=== PATIENT | male | born 2000 | race Caucasian/White ===

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

== ENCOUNTER 2023-05-12 16:03 | Emergency (ER) | payer OTHER, SELFPAY ==
[2023-05-12 16:15] VITALS: BP 120/67; PULSE 124; RESP 17; TEMP 36.6; O2SAT 99; BMI 18.7
--- NOTE | 2023-05-12 16:16 | ED_ITS ---
HPI - URI/Sore Throat General Chief Complaint: General Medical Stated Complaint: Throat pain Time Seen by Provider: 05/12/23 17:47 Source: patient Mode of arrival: ambulatory History of Present Illness HPI Narrative: 23-year-old patient with history of asthma presents with 3 days of sore throat, no cough, no fevers or chills and no nausea or vomiting. Related Data Allergies Allergy/AdvReac Type Severity Reaction Status Date / Time No Known Allergies Allergy Unverified 03/29/20 17:02 [No Known Allergies*] Review of Systems Review of Systems: Pertinent positives and negatives as stated in HPI [facility] Past Medical History Source: nursing notes reviewed Physical Exam Vital Signs: Vital Signs: Last Vital Signs Temp 97.9 F 05/12/23 16:15 Pulse 88 05/12/23 18:13 Resp 18 05/12/23 18:13 BP 118/62 05/12/23 18:13 Pulse Ox 100 05/12/23 18:13 O2 Del Method Room Air 05/12/23 18:13 BMI result Body Mass Index 18.7 VITAL SIGNS: Reviewed. GENERAL: Well developed, well nourished, in no acute distress. HEAD: Normocephalic/atraumatic EYES: PERRLA, EOMI EARS: Ext canals without abnormality, TMs non-bulging and non-erythematous NOSE: Nares patent bilateral OROPHARYNX: no oral lesions noted, posterior pharynx clear and non-erythematous without noted tonsillar enlargement/erythema/exudates NECK: Supple, no adenopathy LUNGS: Normal breath sounds. No adventitious sounds or accessory muscle use. SpO2<100> CARDIOVASCULAR: Regular rate and rhythm without noted murmurs ABDOMEN: Soft, non-tender, non-distended with bowel sounds. MUSCULOSKELETAL: No tenderness, deformities, or effusions noted on gross inspection. EXTREMITIES: No cyanosis, clubbing or edema. SKIN: Inspection of the skin reveals no rashes NEUROLOGIC: Alert and oriented x 4. Strength and sensation to light touch were grossly intact x 4. Course Course Course Narrative: RME: 23yo M w/no sig PMHx c/o sore throat x3 days. Reports can't breath & throat feels like its closing x mos. Talking in complete sentences, +mild b/l tonsilar swelling. no exudates. uvula midline Rapid strep, COVID/FLU ordered Full HPI, ROS and PE to be performed by primary ED provider. Medical Decision Making Medical Decision Making [facility] Narrative: 23-year-old male with history and clinical presentation possible for viral pharyngitis, strep pharyngitis, influenza, no evidence to suggest pneumonia or intra-abdominal infections. I reviewed all investigations and re-evaluated the patient, he is afebrile and viral testing is negative for COVID-19/influenza and strep testing is negative. Patient provided with Cepacol and discharged with instructions to use qvsh-ouk-vknobzg analgesics as well as arnj-pks-dutmljd throat lozenges. Differential Diagnosis Differential Diagnoses: The differential diagnosis associated with the presentation includes Please see the discussion above Admission/Observation Consideration of admission/observation: Escalation of care including admission/observation considered Please see the discussion above Lab Data [facility] Lab Attestation statement: I reviewed the patient's lab results. Please see the discussion above Labs: Lab Results 05/12/23 Range/Units 17:38 COVID-19 (DAMIAN) Negative (Negative) COVID-19 Clin Com See Note Influenza Type A (HAKAN) Negative (Negative) Influenza Type B (HAKAN) Negative (Negative) Influenza A & B Note See Note S. pyogenes GrpA HAKAN Negative (Negative) Discharge Plan Discharge Clinical Impression: Pharyngitis Patient Disposition: Home, Self-Care Instructions: Pharyngitis (ED) Additional Instructions: 1. Recommend [id number]-qkofplo Tylenol/ibuprofen as needed for pain control. Also consider vuvc-efi-dlmgqin throat lozenges such as Cepacol and Sucrets for throat relief. 2. Follow-up with your primary care doctor in the next 1-2 days for re- evaluation. Return to the ER for any worsening symptoms.
[2023-05-12 18:00] LABS: COVID-19 Test Negative (Negative); IDNOW Serial# 08D9AD1C; IDNOW Serial# 9DB6401D; IDNOW Serial# BCCEAD1C; Influenza A Negative (Negative); Influenza B2 Negative (Negative); Strep A Nucleic Acid Negative (Negative)
[2023-05-12 18:13] VITALS: BP 118/62; PULSE 88; RESP 18; O2SAT 100
--- OUTSIDE RECORDS SUMMARY | 2023-05-12 18:26 | XMS_ITS | Continuity of Care Document ---
Author Name Unknown Organization [facility] Address [address] [place] [address]- Care Team Providers Care Electric Power Line Examiner Name Role Phone Juan Anand MD Primary Care Physician [phone] [place] [facility] [place] [facility] [place] 08/20/22 [facility] [address] [place] [address]- [place] Allergies, Adverse Reactions, Alerts No Known Allergies Medications albuterol 0.083% inhalation solution Inhalation, Every 6 hours, Scheduled / PRN, 0, 0, 08/12/08 23:12:26, as needed for wheezing, Print JENNA Number, 54 Start Date: 08/12/08 Status: Ordered albuterol 90 mcg/inh inhalation aerosol 0, 0, 08/12/08 23:12:43, Print JENNA Number, Constant Indicator Start Date: 08/12/08 Status: Ordered Augmentin 400 mg-57 mg/5 ml oral powder for reconstitution 5, mL, By Mouth, Every 12 hours, 210, mL, 0, 0, 08/15/08 16:11:03, Print JENNA Number, ADS OPPTHS, 103, Constant Indicator Start Date: 08/15/08 Stop Date: 09/05/08 Status: Ordered estradiol 1 mg oral tablet 1, tablet, By Mouth, Daily, # 30 tablet, Refills 6, Maintenance, 08/04/22 9:33:00 EST, Route to Pharmacy Electronically, [id number], 180, cm, 09/25/21 11:40:00 EDT, Height, 64.9, kg, 04/30/22 15:21:00 EDT, Dry Weight Start Date: 08/04/22 Status: Ordered Flovent Diskus 50 mcg inhalation powder 1, puffs, Inhalation, 2 times a day, 0, 0, 08/12/08 23:12:13, Print JENNA Number, [id number], Constant Indicator Start Date: 08/12/08 Status: Ordered Triptodur 22.5 mg intramuscular injection, extended release = 22.5 mg, Intramuscular, Every 6 months, # 1 each, 1 Refills, Maintenance, 04/14/22 14:06:00 EDT, Powder, [facility], Partial fill upon patient request if the prescription is for a schedule II opioid drug., 180, cm, 09/25/21 11:40:00... Start Date: 04/14/22 Status: Ordered Patient Care team information Care Team Personnel Name: Chegn LYNN, Juan Post Position: [facility] General Pediatrics MD Member Role: PCP Address: Address: [address] [place] [address] [place] [address]- Care Team Related Persons Name: SALMA CASTELLANOS Address: home [address] [place] [address] Name: LAWRENCE GONSALES Address: home [address] [place] [address]
--- OUTSIDE RECORDS SUMMARY | 2023-05-12 18:26 | XMS_ITS | Continuity of Care Document ---
Author Name Unknown Organization [facility] Address [address] [place] [address]- Care Team Providers Care Sports Equipment Supervisor Name Role Phone Juan Anand MD Primary Care Physician [place] [facility] [place] 02/04[place]23 - 03/06/23 [facility] [address] [place] [address]- [place] Allergies, Adverse Reactions, Alerts No Known Allergies Medications 1 cc syringe 1 cc syringe, See Instructions, # 2 each, Refills 4, Tot. Refills 4, Maintenance, to be used to administer estradiol (<50mg), 02/26/23 16:16:00 EDT, Compound, 180, cm, 09/25/21 11:40:00 EDT, Height, 63.6, kg, 10/29/22 15:48:00 EDT, Dry Weight Start Date: 02/26/23 Status: Ordered 18 gauge 1 inch syringe needle 18 gauge 1 inch syringe needle, See Instructions, # 2 each, Refills 4, Tot. Refills 4, Maintenance,to be used to draw up estradiol, 02/26/23 16:16:00 EDT, Compound, 180, cm, 09/25/21 11:40:00 EDT, Height, 63.6, kg, 10/29/22 15:48:00 EDT, Dry Weight Start Date: 02/26/23 Status: Ordered 22-23 gauge 1 inch syringe needle 22-23 gauge 1 inch syringe needle, See Instructions, # 2 each, Refills 4, Tot. Refills 4, Maintenance, To be used to administer estradiol injection, 02/26/23 16:16:00 EDT, Compound, 180, cm, 09/25/2210:40:00 EDT, Height, 63.6, kg, 10/29/22 15:48:00 E... Start Date: 02/26/23 Status: Ordered albuterol 0.083% inhalation solution Inhalation, Every 6 [...] 08/15/08 Stop Date: 09/05/08 Status: Ordered estradiol valerate 40 mg/mL intramuscular solution 0.125 mL = 5 mg, Intramuscular, Every 14 days, # 5 mL, 4 Refills, Maintenance, 02/26/23 16:16:00 EDT, [facility]/pharmacy #[id number], Partial fill upon patient request if the prescription is for a schedule II opioid drug., 180, cm, 09/25/21 11:40:00 EDT, Height,... Start Date: 02/26/23 Stop Date: 07/26/23 Status: Ordered Flovent Diskus 50 mcg inhalation powder 1, puffs, Inhalation, 2 times a day, 0, 0, 08/12/08 23:12:13, Print JENNA Number, [id number], Constant Indicator Start Date: 08/12/08 Status: Ordered Triptodur 22.5 mg intramuscular injection, extended release = 22.5 mg, Intramuscular, Every 6 months, # 1 each, 1 Refills, Maintenance, 04/14/22 14:06:00 EDT, Powder, [facility], Partial fill upon patient request if the prescription is for a schedule II opioid drug., 180, cm, 09/25/21 11:40:00... Start Date: 04/14/22 Status: Ordered Patient Care team information Care Team Personnel Name: Juan Anand MD Position: [facility] General Pediatrics MD Member Role: PCP Address: Address: [address] [place] [address] [facility] [place], [place] [address] Care Team Related Persons Name: SALMA CASTELLANOS Address: home [address] [place] [address] Name: LAWRENCE GONSALES Address: home [address] [place] [address]
--- OUTSIDE RECORDS SUMMARY | 2023-05-12 18:26 | XMS_ITS | Continuity of Care Document ---
Author Name Unknown Organization [facility] Address [address] [place] [address]- Care Team Providers Care Air Pollution Engineer Name Role Phone Juan Anand MD Primary Care Physician Encounter [facility] [place] Date(s): 07/21/22 - 08/20/22 [facility] [address] [place] [address]- [place] Allergies, Adverse Reactions, Alerts No Known Allergies Medications albuterol 0.083% inhalation solution Inhalation, Every 6 hours, Scheduled / PRN, 0, 0, 08/12/08 23:12:26, as needed for wheezing, Print JENNA Number, 54 Start Date: 08/12/08 Status: Ordered albuterol 90 mcg/inh inhalation aerosol 0, 0, 08/12/08 23:12:43, Print EJNNA Number, Constant Indicator Start Date: 08/12/08 Status: [...] 08/04/22 9:33:00 EST, Route to Pharmacy Electronically, [id number], 180, cm, 09/25/21 11:40:00 EDT, Height, 64.9, kg, 04/30/22 15:21:00 EDT, Dry Weight Start Date: 08/04/22 Status: Ordered Flovent Diskus 50 mcg inhalation powder 1, puffs, Inhalation, 2 times a day, 0, 0, 08/12/08 23:12:13, Print JENNA Number, [id number], Constant Indicator Start Date: 08/12/08 Status: Ordered Triptodur 22.5 mg intramuscular injection, extended release = 22.5 mg, Intramuscular, Every 6 months, # 1 each, 1 Refills, Maintenance, 04/14/22 14:06:00 EDT, Powder, [facility], Partial fill upon patient request if the prescription is for a schedule II opioid drug., 180, cm, 09/25/21 11:40:00... Start Date: 04/14/22 Status: Ordered Patient Care team information Care Team Personnel Name: Cheng LYNN, Juan Post Position: [facility] General Pediatrics MD Member Role: PCP Address: Address: [address] [place] [address] [place] [address]- Care Team Related Persons Name: SALMA CASTELLANOS Address: [address] [place] [address] Name: LAWRENCE GONSALES Address: [address] [place] [address]
--- OUTSIDE RECORDS SUMMARY | 2023-05-12 18:26 | XMS_ITS | Continuity of Care Document ---
Author Name Unknown Organization [facility] Address [address] [place] [address]- Care Team Providers Care Trailers And Motor Homes Salesperson Name Role Phone Juan Anand MD Primary Care Physician [phone] Encounter [facility] [place] Date(s): 03/23/23 - 04/22/23 [facility] [address] [place] [address] [place] Allergies, Adverse Reactions, Alerts No Known Allergies Medications 1 cc syringe 1 cc syringe, See Instructions, # 2 each, Refills 4, Tot. Refills 4, Maintenance, to be used to administer estradiol (<50mg), 03/23/23 14:52:00 EDT, Compound, 180, cm, 09/25/21 11:40:00 EDT, Height, 63.6, kg, 10/29/22 15:48:00 EDT, Dry Weight Start Date: 03/23/23 Status: Ordered 18 gauge 1 inch syringe needle 18 gauge 1 inch syringe needle, See Instructions, # 2 each, Refills 4, Tot. Refills 4, Maintenance,to be used to draw up estradiol, 03/23/23 14:52:00 EDT, Compound, 180, cm, 09/25/21 11:40:00 EDT, Height, 63.6, kg, 10/29/22 15:48:00 EDT, Dry Weight Start Date: 03/23/23 Status: Ordered 22-23 gauge 1 inch syringe needle 22-23 gauge 1 inch syringe needle, See Instructions, # 2 each, Refills 4, Tot. Refills 4, Maintenance, To be used to administer estradiol injection, 03/23/23 14:52:00 EDT, Compound, 180, cm, 09/25/2210:40:00 EDT, Height, 63.6, kg, 10/29/22 15:48:00 E... Start Date: 03/23/23 Status: Ordered albuterol 0.083% inhalation solution Inhalation, [...] days, # 5 mL, 4 Refills, Maintenance, 03/23/23 14:52:00 EDT, [facility]/pharmacy #[id number], Partial fill upon patient request if the prescription is for a schedule II opioid drug., 180, cm, 09/25/21 11:40:00 EDT, Height,... Start Date: 03/23/23 Stop Date: 08/20/23 Status: Ordered Flovent Diskus 50 mcg inhalation powder 1, puffs, Inhalation, 2 times a day, 0, 0, 08/12/08 23:12:13, Print JENNA Number, [id number], Constant Indicator Start Date: 08/12/08 Status: Ordered Lupron Depot-Ped 30 mg/3 months intramuscular kit = 30 mg, Intramuscular, Every 3 months, # 1 each, 3 Refills, Maintenance, 04/03/23 13:01:00 EDT, Powder, [facility], Partial fill upon patient request if the prescription is for a schedule II opioid drug., 180, cm, 09/25/21 11:40:00 E... Start Date: 04/03/23 Stop Date: 03/28/24 Status: Ordered Patient Care team information Care Team Personnel Name: Juan Anand MD Position: [facility] General Pediatrics MD Member Role: PCP Address: Address: [address] [place] [address] [place] [address]- [place] Name: Ever CACERES, Camilla Position: S RN Member Role: Primary Care Nurse Care Team Related Persons Name: SALMA CASTELLANOS Address: home [address] [place] [address] Name: LAWRENCE GONSALES Address: home [address] [place] [address]
--- OUTSIDE RECORDS SUMMARY | 2023-05-12 18:26 | XMS_ITS | Continuity of Care Document ---
Author Name Unknown Organization [facility] Address [address] [place] [address]- Care Team Providers Care Port Engineer Name Role Phone Cheng LYNN, Juan Post Primary Care Physician [place] [facility] [place]s): 01/08/21 - 03/14/21 [facility] [address] [place] [address]- Attending Physician: Victorino LYNN, Joey Omalley Admitting Physician: Victorino LYNN, Joey Omalley Referring Physician: Juan nAand MD Allergies, Adverse Reactions, Alerts Substance Reaction Severity Status NKA Active Medications albuterol 0.083% inhalation solution Inhalation, Every [...] Date: 08/15/08 Stop Date: 09/05/08 Status: Ordered Flovent Diskus 50 mcg inhalation powder 1, puffs, Inhalation, 2 times a day, 0, 0, 08/12/08 23:12:13, Print JENNA Number, [id number], Constant Indicator Start Date: 08/12/08 Status: Ordered
--- OUTSIDE RECORDS SUMMARY | 2023-05-12 18:26 | XMS_ITS | Continuity of Care Document ---
Author Name Unknown Organization [facility] Address [address] [place] [address]- Care Team Providers Care Experienced Truck Driver Name Role Phone Juan Anand MD Primary Care Physician [phone] [place] [facility] [place]22 [facility] [address] [place] [address]- [place] Allergies, Adverse Reactions, Alerts No Known [...] Date: 08/15/08 Stop Date: 09/05/08 Status: Ordered Estrace 1 mg oral tablet 1 mg, 1, tablet, By Mouth, Daily, # 30 tablet, Refills 6, Tot. Refills 6, Maintenance, 12/23/21 15:51:00 EDT, Route to Pharmacy Electronically, [facility]/pharmacy #[id number], Partial fill upon patient request if the prescription is for a schedule II opioid drug.... Start Date: 12/23/21 Status: Ordered Flovent Diskus 50 mcg inhalation powder 1, puffs, Inhalation, 2 times a day, 0, 0, 08/12/08 23:12:13, Print JENNA Number, [id number], Constant Indicator Start Date: 08/12/08 Status: Ordered Triptodur 22.5 mg intramuscular injection, extended release = 22.5 mg, Intramuscular, Every 6 months, # 1 each, 1 Refills, Maintenance, 04/18/21 9:14:00 EDT, Miguel, [facility], Partial fill upon patient request if the prescription is for a schedule II opioid drug., 178.5, cm, 04/17/21 11:06:0... Start Date: 04/18/21 Status: Ordered
--- OUTSIDE RECORDS SUMMARY | 2023-05-12 18:26 | XMS_ITS | Continuity of Care Document ---
Author Name Unknown Organization [facility] Address [address] [place] [address]- Care Team Providers Care Dielectric Press Operator Name Role Phone Juan Anand MD Primary Care Physician Encounter [facility] Date(s): 12/02/21 - 01/01/22 [facility] [address] [place] [phone]- [place] Allergies, Adverse Reactions, Alerts No Known [...] 12/23/21 15:51:00 EDT, Route to Pharmacy Electronically, [facility]/pharmacy #[id number], Partial fill upon patient request if the prescription is for a schedule II opioid drug.... Start Date: 12/23/21 Status: Ordered Flovent Diskus 50 mcg inhalation powder 1, puffs, Inhalation, 2 times a day, 0, 0, 08/12/08 23:12:13, Print JENNA Number, [id number], Constant Indicator Start Date: 08/12/08 Status: Ordered Triptodur 22.5 mg intramuscular injection, extended release = 22.5 mg, Intramuscular, Every 6 months, # 1 each, 1 Refills, Maintenance, 04/18/21 9:14:00 EDT, Powder, [facility], Partial fill upon patient request if the prescription is for a schedule II opioid drug., 178.5, cm, 04/17/21 11:06:0... Start Date: 04/18/21 Status: Ordered
--- OUTSIDE RECORDS SUMMARY | 2023-05-12 18:26 | XMS_ITS | Continuity of Care Document ---
Author Name Unknown Organization [facility] Address [address] [place] [address]- Care Team Providers Care Oss Architect Name Role Phone Juan Anand MD Primary Care Physician [phone] [place] [facility] [place] 12/23/21 - 01/22/22 [facility] [address] [place] [address] [place] Allergies, Adverse Reactions, Alerts No Known [...] 12/23/21 15:51:00 EDT, Route to Pharmacy Electronically, [facility]/pharmacy #[id number], Partial fill upon patient request if the prescription is for a schedule II opioid drug.... Start Date: 12/23/21 Status: Ordered Flovent Diskus 50 mcg inhalation powder 1, puffs, Inhalation, 2 times a day, 0, 0, 08/12/08 23:12:13, Print JENNA Number, [id number], Constant Indicator Start Date: 08/12/08 Status: Ordered Triptodur 22.5 mg intramuscular injection, extended release = 22.5 mg, Intramuscular, Every 6 months, # 1 each, 1 Refills, Maintenance, 04/18/21 9:14:00 EDT, Miguel, [facility], Partial fill upon patient request if the prescription is for a schedule II opioid drug., 178.5, cm, 04/17/21 11:06:0... Start Date: 04/18/21 Status: Ordered
--- OUTSIDE RECORDS SUMMARY | 2023-05-12 18:26 | XMS_ITS | Continuity of Care Document ---
Author Name Unknown Organization [facility] Address [address] [place] [address]- Care Team Providers Care Geophysical Engineer Name Role Phone Juan Anand MD Primary Care Physician [place] [facility] [place]23 [place] 03/06/23 [facility] [address] [place] [address]- [place] Allergies, Adverse Reactions, Alerts No Known [...] mL, 4 Refills, Maintenance, 02/26/23 16:16:00 EDT, [facility]/pharmacy #[id number], Partial fill upon patient request if the prescription is for a schedule II opioid drug., 180, cm, 09/25/21 11:40:00 EDT, Height,... Start Date: 02/26/23 Stop Date: 07/26/23 Status: Ordered Flovent Diskus 50 mcg inhalation powder 1, puffs, Inhalation, 2 times a day, 0, 0, 08/12/08 23:12:13, Print JENNA Number, [id number], Constant Indicator Start Date: 08/12/08 Status: Ordered Triptodur 22.5 mg intramuscular injection, extended release = 22.5 mg, Intramuscular, Every 6 months, # 1 each, 1 Refills, Maintenance, 04/14/22 14:06:00 EDT, Powder, [facility], Partial fill upon patient request if the prescription is for a schedule II opioid drug., 180, cm, 09/25/21 11:40:00... Start Date: 04/14/22 Status: Ordered Patient Care team information Care Team Personnel Name: Juan Anand MD Position: [facility] General Pediatrics MD Member Role: PCP Address: Address: [address] [place] [address] [facility] [place], [place] [address] Care Team Related Persons Name: SALMA CASTELLANOS Address: home [address] [place] [address] Name: LAWRENCE GONSALES Address: home [address] [place] [address]
--- OUTSIDE RECORDS SUMMARY | 2023-05-12 18:26 | XMS_ITS | Continuity of Care Document ---
Author Name Unknown Organization [facility] Address [address] [place] [address]- Care Team Providers Care Tools Developer Name Role Phone Cheng LYNN, Juan Post Primary Care Physician Encounter [facility] [place] Date(s): 10/01/20 - 10/31/20 [facility] [address] [place] [address]- Attending Physician: Admtr, Willie8 Admitting Physician: Admtr, Ar8 Referring Physician: Admtr, Ar8 Allergies, Adverse Reactions, Alerts Substance Reaction Severity [...] 0, 0, 08/12/08 23:12:13, Print JENNA Number, [id number], Constant Indicator Start Date: 08/12/08 Status: Ordered
--- OUTSIDE RECORDS SUMMARY | 2023-05-12 18:26 | XMS_ITS | Continuity of Care Document ---
Author Name Unknown Organization [facility] Address [address] [place] [address]- Care Team Providers Care Family Dinner Service Specialist Name Role Phone Juan Anand MD Primary Care Physician [phone] Encounter [facility] [place] Date(s): 02/25/23 - 03/27/23 [facility] [address] [place] [address]- [place] Allergies, Adverse Reactions, Alerts No Known [...] 03/23/23 14:52:00 EDT, [facility]/pharmacy #[id number], Partial fill upon patient request if the prescription is for a schedule II opioid drug., 180, cm, 09/25/21 11:40:00 EDT, Height,... Start Date: 03/23/23 Stop Date: 08/20/23 Status: Ordered Flovent Diskus 50 mcg inhalation powder 1, puffs, Inhalation, 2 times a day, 0, 0, 08/12/08 23:12:13, Print JENNA Number, [id number], Constant Indicator Start Date: 08/12/08 Status: Ordered Triptodur 22.5 mg intramuscular injection, extended release = 22.5 mg, Intramuscular, Every 6 months, # 1 each, 1 Refills, Maintenance, 04/14/22 14:06:00 EDT, Powder, [facility], Partial fill upon patient request if the prescription is for a schedule II opioid drug., 180, cm, 09/25/21 11:40:00... Start Date: 04/14/22 Status: Ordered Patient Care team information Care Team Personnel Name: Juan Anand MD Position: [facility] General Pediatrics MD Member Role: PCP Address: Address: [address] [place] [address] [place] [address]- Care Team Related Persons Name: EMANUEL SALMA Address: home [address] [place] [address] Name: LAWRENCE GONSALES Address: home [address] [place] [address]
--- OUTSIDE RECORDS SUMMARY | 2023-05-12 18:26 | XMS_ITS | Continuity of Care Document ---
Author Name Unknown Organization [facility] ndocr[facility] Address [address] [place] [address]- Care Team Providers Care Ostomy Nurse Name Role Phone Juan Anand MD Primary Care Physician [place] [facility] [place](s[place] 09/24/22 - 10/24/22 [facility] [address] [place] [address]- [place] Allergies, Adverse Reactions, Alerts No Known Allergies Medications 1 cc syringe 1 cc syringe, See Instructions, # 2 each, Refills 4, Tot. Refills 4, Maintenance, to be used to administer estradiol (<50mg), 10/09/22 16:10:00 EDT, Compound, 180, cm, 09/25/21 11:40:00 EDT, Height, 62.2, kg, 09/22/22 14:07:00 EDT, Dry Weight Start Date: 10/09/22 Status: Ordered 18 gauge 1 inch syringe needle 18 gauge 1 inch syringe needle, See Instructions, # 2 each, Refills 4, Tot. Refills 4, Maintenance,to be used to draw up estradiol, 10/09/22 16:10:00 EDT, Compound, 180, cm, 09/25/21 11:40:00 EDT, Height, 62.2, kg, 09/22/22 14:07:00 EDT, Dry Weight Start Date: 10/09/22 Status: Ordered 22-23 gauge 1 inch syringe needle 22-23 gauge 1 inch syringe needle, See Instructions, # 2 each, Refills 4, Tot. Refills 4, Maintenance, To be used to administer estradiol injection, 10/09/22 16:10:00 EDT, Compound, 180, cm, 09/25/2210:40:00 EDT, Height, 62.2, kg, 09/22/22 14:07:00 E... Start Date: 10/09/22 Status: Ordered albuterol 0.083% inhalation solution Inhalation, [...] Ordered estradiol valerate 40 mg/mL intramuscular solution 0.25 mL = 10 mg, Intramuscular, Every 14 days, # 5 mL, 4 Refills, Maintenance, 10/09/22 16:44:00 EDT, [facility], Partial fill upon patient request if the prescription is for a schedule II opioid drug., 180, cm, 09/25/21 11:40:00 EDT,... Start Date: 10/09/22 Status: Ordered Flovent Diskus 50 mcg inhalation powder 1, puffs, Inhalation, 2 times a day, 0, 0, 08/12/08 23:12:13, Print JENNA Number, [id number], Constant Indicator Start Date: 08/12/08 Status: Ordered Triptodur 22.5 mg intramuscular injection, extended release = 22.5 mg, Intramuscular, Every 6 months, # 1 each, 1 Refills, Maintenance, 04/14/22 14:06:00 EDT, Powder, [facility], Partial fill upon patient request if the prescription is for a schedule II opioid drug., 180, cm, 09/25/21 11:40:00... Start Date: 04/14/22 Status: Ordered Patient Care team information Care Team Personnel Name: Juan nAand MD Position: [facility] General Pediatrics MD Member Role: PCP Address: Address: [address] [place] [address] Pediatric Associates [place], [place] [address] Care Team Related Persons Name: SALMA CASTELLANOS Address: [address] [place] [address] Name: LAWRENCE GONSALES Address: home [address] [place] [address]
--- OUTSIDE RECORDS SUMMARY | 2023-05-12 18:26 | XMS_ITS | Continuity of Care Document ---
Author Name Unknown Organization [facility] Address [address] [place] [address]- Care Team Providers Care Milker Machine Name Role Phone Juan Anand MD Primary Care Physician [phone] [place] [facility] [place] - 11/15/22 [facility] [address] [place] [address]- Attending Physician: Admtr, Carol Admitting Physician: Admtr, Ar8 Referring Physician: Admtr, Ar8 Allergies, Adverse Reactions, Alerts No Known Allergies Medications 1 cc syringe 1 cc syringe, See Instructions, # 2 each, Refills 4, Tot. Refills 4, Maintenance, to be used to administer estradiol (<50mg), 11/11/22 15:45:00 EDT, Compound, 180, cm, 09/25/21 11:40:00 EDT, Height, 63.6, kg, 10/29/22 15:48:00 EDT, Dry Weight Start Date: 11/11/22 Status: Ordered 18 gauge 1 inch syringe needle 18 gauge 1 inch syringe needle, See Instructions, # 2 each, Refills 4, Tot. Refills 4, Maintenance,to be used to draw up estradiol, 11/11/22 15:45:00 EDT, Compound, 180, cm, 09/25/21 11:40:00 EDT, Height, 63.6, kg, 10/29/22 15:48:00 EDT, Dry Weight Start Date: 11/11/22 Status: Ordered 22-23 gauge 1 inch syringe needle 22-23 gauge 1 inch syringe needle, See Instructions, # 2 each, Refills 4, Tot. Refills 4, Maintenance, To be used to administer estradiol injection, 11/11/22 15:45:00 EDT, Compound, 180, cm, 09/25/2210:40:00 EDT, Height, 63.6, kg, 10/29/22 15:48:00 E... Start Date: 11/11/22 Status: Ordered albuterol 0.083% inhalation solution Inhalation, [...] mL, 4 Refills, Maintenance, 10/09/22 16:44:00 EDT, [facility], Partial fill upon patient request if the prescription is for a schedule II opioid drug., 180, cm, 09/25/21 11:40:00 EDT,... Start Date: 10/09/22 Status: Ordered Flovent Diskus 50 mcg inhalation powder 1, puffs, Inhalation, 2 times a day, 0, 0, 08/12/08 23:12:13, Print JENNA Number, [id number], Constant Indicator Start Date: 08/12/08 Status: Ordered Triptodur 22.5 mg intramuscular injection, extended release = 22.5 mg, Intramuscular, Every 6 months, # 1 each, 1 Refills, Maintenance, 04/14/22 14:06:00 EDT, Powder, [facility], Partial fill upon patient request if the prescription is for a schedule II opioid drug., 180, cm, 09/25/21 11:40:00... Start Date: 04/14/22 Status: Ordered Patient Care team information Care Team Personnel Name: Cheng LYNN, Juan Post Position: [facility] General Pediatrics MD Member Role: PCP Address: Address: [address] [place] [address] [facility] [place] [address]- Care Team Related Persons Name: SALMA CASTELLANOS Address: [address] [place] [address] Name: LAWRENCE GONSALES Address: home [address] [place] [address]
--- OUTSIDE RECORDS SUMMARY | 2023-05-12 18:26 | XMS_ITS | Continuity of Care Document ---
Author Name Unknown Organization [facility] Address [address] [place] [address]- Care Team Providers Care Animal Husbandman Name Role Phone Juan Anand MD Primary Care Physician [place] [facility] [place] 05/26/22 - 06/25/22 [facility] [address] [place] [address]- [place] Allergies, Adverse Reactions, Alerts No Known [...] By Mouth, Daily, # 30 tablet, Refills 0, Tot. Refills 0, Maintenance, 06/09/22 15:50:00 EST, Route to Pharmacy Electronically, [facility]/pharmacy #[id number], Partial fill upon patient request if the prescription is for a schedule II opioid drug.... Start Date: 06/09/22 Status: Ordered Flovent Diskus 50 mcg inhalation powder 1, puffs, Inhalation, 2 times a day, 0, 0, 08/12/08 23:12:13, Print JENNA Number, [id number], Constant Indicator Start Date: 08/12/08 Status: Ordered Triptodur 22.5 mg intramuscular injection, extended release = 22.5 mg, Intramuscular, Every 6 months, # 1 each, 1 Refills, Maintenance, 04/14/22 14:06:00 EDT, Powder, [facility], Partial fill upon patient request if the prescription is for a schedule II opioid drug., 180, cm, 09/25/21 11:40:00... Start Date: 04/14/22 Status: Ordered Patient Care team information Care Team Personnel Name: Cheng LYNN, Juan Post Position: [facility] General Pediatrics MD Member Role: PCP Address: Address: [address] [place] [address] [place] [address]- Care Team Related Persons Name: SALMA CASTELLANOS Address: [address] [place] [address] Name: LAWRENCE GONSALES Address: home [address] [place] [address]
--- OUTSIDE RECORDS SUMMARY | 2023-05-12 18:26 | XMS_ITS | Continuity of Care Document ---
Author Name Unknown Organization [facility] nd[facility] Address [address] [place] [address]- Care Team Providers Care Store Operations Associate Name Role Phone Juan Anand MD Primary Care Physician [place] [facility] [place]23 - 03/27/23 [facility] [address] [place] [address]- [place] Allergies, Adverse Reactions, Alerts No Known [...] mL, 4 Refills, Maintenance, 03/23/23 14:52:00 EDT, [facility]/pharmacy #[id number], Partial fill upon patient request if the prescription is for a schedule II opioid drug., 180, cm, 09/25/21 11:40:00 EDT, Height,... Start Date: 03/23/23 Stop Date: 08/20/23 Status: Ordered Flovent Diskus 50 mcg inhalation powder 1, puffs, Inhalation, 2 times a day, 0, 0, 08/12/08 23:12:13, Print JENNA Number, [id number], Constant Indicator Start Date: 08/12/08 Status: Ordered Triptodur 22.5 mg intramuscular injection, extended release = 22.5 mg, Intramuscular, Every 6 months, # 1 each, 1 Refills, Maintenance, 04/14/22 14:06:00 EDT, Powder, [facility], Partial fill upon patient request if the prescription is for a schedule II opioid drug., 180, cm, 09/25/21 11:40:00... Start Date: 04/14/22 Status: Ordered Patient Care team information Care Team Personnel Name: Juan Anand MD Position: [facility] General Pediatrics MD Member Role: PCP Address: Address: [address] [place] [address] [facility] [place] [id number]- [place] Care Team Related Persons Name: SALMA CASTELLANOS Address: home [address] [place] [address] Name: LAWRENCE GONSALES Address: home [address] [place] [address]
--- OUTSIDE RECORDS SUMMARY | 2023-05-12 18:26 | XMS_ITS | Continuity of Care Document ---
Author Name Unknown Organization [facility] Address [address] [place] [address]- Care Team Providers Care Agricultural Chemicals Inspector Name Role Phone Juan Anand MD Primary Care Physician Encounter [facility] [place] Date(s): 09/25/21 - 10/25/21 [facility] [address] [place] [address]- Attending Physician: Carol Dietrich Admitting Physician: Carol Dietrich Referring Physician: Admtr, Ar8 Allergies, Adverse Reactions, [...] 08/15/08 Stop Date: 09/05/08 Status: Ordered Estrace 0.5 mg oral tablet 1 tablet = 0.5 mg, By Mouth, Daily, # 30 tablet, 6 Refills, Maintenance, 07/16/21 12:30:00 EST, Tablet, [facility]/pharmacy #[id number], Partial fill upon patient request if the prescription is for a schedule II opioid drug., 178.5, cm, 04/17/21 11:06:00 EDTMeena... Start Date: 07/16/21 Status: Ordered Flovent Diskus 50 mcg inhalation powder 1, puffs, Inhalation, 2 times a day, 0, 0, 08/12/08 23:12:13, Print JENNA Number, [id number], Constant Indicator Start Date: 08/12/08 Status: Ordered Triptodur 22.5 mg intramuscular injection, extended release = 22.5 mg, Intramuscular, Every 6 months, # 1 each, 1 Refills, Maintenance, 04/18/21 9:14:00 EDT, Powder, [facility], Partial fill upon patient request if the prescription is for a schedule II opioid drug., 178.5, cm, 04/17/21 11:06:0... Start Date: 04/18/21 Status: Ordered
--- OUTSIDE RECORDS SUMMARY | 2023-05-12 18:26 | XMS_ITS | Continuity of Care Document ---
Author Name Unknown Organization [facility] Address [address] [place] [address]- Care Team Providers Care Civil Engineering Specialist Name Role Phone Juan Anand MD Primary Care Physician [phone] En[place] [facility] [place] Date(s): 04/22/21 - 05/22/21 [facility] [address] [place] [address]- [place] Allergies, Adverse Reactions, Alerts Substance Reaction Severity [...] 0, 0, 08/12/08 23:12:13, Print JENNA Number, [id number], Constant Indicator Start Date: 08/12/08 Status: Ordered Triptodur 22.5 mg intramuscular injection, extended release = 22.5 mg, Intramuscular, Every 6 months, # 1 each, 1 Refills, Maintenance, 04/18/21 9:14:00 EDT, Powder, [facility], Partial fill upon patient request if the prescription is for a schedule II opioid drug., 178.5, cm, 04/17/21 11:06:0... Start Date: 04/18/21 Status: Ordered
--- OUTSIDE RECORDS SUMMARY | 2023-05-12 18:26 | XMS_ITS | Continuity of Care Document ---
Author Name Unknown Organization [facility] Address [address] [place] [address]- Care Team Providers Care Caustic Preparer Name Role Phone Juan Anand MD Primary Care Physician [place] [facility] [place](s): 12/13/21 - 01/12/22 [facility] [address] [place] [address]- [place] Allergies, Adverse Reactions, Alerts No Known [...] 12/23/21 15:51:00 EDT, Route to Pharmacy Electronically, [facility]/pharmacy #[id number], Partial fill upon patient request if the prescription is for a schedule II opioid drug.... Start Date: 12/23/21 Status: Ordered Flovent Diskus 50 mcg inhalation powder 1, puffs, Inhalation, 2 times a day, 0, 0, 08/12/08 23:12:13, Print JENNA Number, [id number], Constant Indicator Start Date: 08/12/08 Status: Ordered Triptodur 22.5 mg intramuscular injection, extended release = 22.5 mg, Intramuscular, Every 6 months, # 1 each, 1 Refills, Maintenance, 04/18/21 9:14:00 EDT, Powder, [facility], Partial fill upon patient request if the prescription is for a schedule II opioid drug., 178.5, cm, 04/17/21 11:06:0... Start Date: 04/18/21 Status: Ordered
--- OUTSIDE RECORDS SUMMARY | 2023-05-12 18:26 | XMS_ITS | Continuity of Care Document ---
Author Name Unknown Organization [facility] Address [address] [place] [address]- Care Team Providers Care Continuous Loft Operator Name Role Phone Juan Anand MD Primary Care Physician En[place] [facility] [place] Date(s): 09/26/22 - 10/26/22 [facility] [address] [place] [address]- [place] Allergies, Adverse Reactions, Alerts No Known [...] mL, 4 Refills, Maintenance, 10/09/22 16:44:00 EDT, [facility], Partial fill upon patient request if the prescription is for a schedule II opioid drug., 180, cm, 09/25/21 11:40:00 EDT,... Start Date: 10/09/22 Status: Ordered Flovent Diskus 50 mcg inhalation powder 1, puffs, Inhalation, 2 times a day, 0, 0, 08/12/08 23:12:13, Print JENNA Number, [id number], Constant Indicator Start Date: 08/12/08 Status: Ordered Triptodur 22.5 mg intramuscular injection, extended release = 22.5 mg, Intramuscular, Every 6 months, # 1 each, 1 Refills, Maintenance, 04/14/22 14:06:00 EDT, Powder, [facility], Partial fill upon patient request if the prescription is for a schedule II opioid drug., 180, cm, 09/25/21 11:40:00... Start Date: 04/14/22 Status: Ordered Patient Care team information Care Team Personnel Name: Juan Anand MD Position: [facility] General Pediatrics MD Member Role: PCP Address: Address: [address] [place] [address] [facility] Associates [place], [place] [address] Care Team Related Persons Name: SALMA CASTELLANOS Address: home [address] [place] [address] Name: LAWRENCE GONSALES Address: home [address] [place] [address]
--- OUTSIDE RECORDS SUMMARY | 2023-05-12 18:26 | XMS_ITS | Continuity of Care Document ---
Author Name Unknown Organization [facility] nd[facility] Address [address] [place] [address]- Care Team Providers Care Road Service Locksmith Name Role Phone Juan Anand MD Primary Care Physician [phone] [place] [facility] [place](s): 10/09/22 - 11/08/22 [facility] [address] [place] [address]- [place] Allergies, Adverse Reactions, Alerts No Known [...] mL, 4 Refills, Maintenance, 10/09/22 16:44:00 EDT, [facility], Partial fill upon patient request if the prescription is for a schedule II opioid drug., 180, cm, 09/25/21 11:40:00 EDT,... Start Date: 10/09/22 Status: Ordered Flovent Diskus 50 mcg inhalation powder 1, puffs, Inhalation, 2 times a day, 0, 0, 08/12/08 23:12:13, Print JENNA Number, [id number], Constant Indicator Start Date: 08/12/08 Status: Ordered Triptodur 22.5 mg intramuscular injection, extended release = 22.5 mg, Intramuscular, Every 6 months, # 1 each, 1 Refills, Maintenance, 04/14/22 14:06:00 EDT, Powder, [facility], Partial fill upon patient request if the prescription is for a schedule II opioid drug., 180, cm, 09/25/21 11:40:00... Start Date: 04/14/22 Status: Ordered Patient Care team information Care Team Personnel Name: Juan Anand MD Position: [facility] General Pediatrics MD Member Role: PCP Address: Address: [address] [place] [address] [facility] [place] [address] Care Team Related Persons Name: SALMA CASTELLANOS Address: [address] [place] [address] Name: LAWRENCE GONSALES Address: [address] [place] [address]
--- OUTSIDE RECORDS SUMMARY | 2023-05-12 18:26 | XMS_ITS | Continuity of Care Document ---
Author Name Unknown Organization [facility] Address [address] [place] [address]- Care Team Providers Care Lawyers Name Role Phone Juan Anand MD Primary Care Physician [phone] Encounter [place] Date(s): 11/11/22 - 12/11/22 [facility] [address] [place] [address]- [place] Allergies, Adverse Reactions, Alerts No Known [...] mL, 4 Refills, Maintenance, 10/09/22 16:44:00 EDT, [facility], Partial fill upon patient request if the prescription is for a schedule II opioid drug., 180, cm, 09/25/21 11:40:00 EDT,... Start Date: 10/09/22 Status: Ordered Flovent Diskus 50 mcg inhalation powder 1, puffs, Inhalation, 2 times a day, 0, 0, 08/12/08 23:12:13, Print JENNA Number, [id number], Constant Indicator Start Date: 08/12/08 Status: Ordered Triptodur 22.5 mg intramuscular injection, extended release = 22.5 mg, Intramuscular, Every 6 months, # 1 each, 1 Refills, Maintenance, 04/14/22 14:06:00 EDT, Powder, [facility], Partial fill upon patient request if the prescription is for a schedule II opioid drug., 180, cm, 09/25/21 11:40:00... Start Date: 04/14/22 Status: Ordered Patient Care team information Care Team Personnel Name: Juan Anand MD Position: [facility] General Pediatrics MD Member Role: PCP Address: Address: [address] [place] [address] [facility] Associates [place], [place] [address] Care Team Related Persons Name: SALMA CASTELLANOS Address: [address] [place] [address] Name: LAWRENCE GONSALES Address: [address] [place] [address]
--- OUTSIDE RECORDS SUMMARY | 2023-05-12 18:26 | XMS_ITS | Continuity of Care Document ---
Author Name Unknown Organization [facility] Address [address] [place] [address]- Care Team Providers Care Channel Cementer Insole Machine Name Role Phone Juan Anand MD Primary Care Physician Encounter [facility] [place] Date(s): 07/16/21 - 08/15/21 [facility] [address] [place] [address]- Attending Physician: Carol Dietrich Admitting Physician: Carol [...] Refills, Maintenance, 07/16/21 12:30:00 EST, Tablet, [id number], Partial fill upon patient request if the prescription is for a schedule II opioid drug., 178.5, cm, 04/17/21 11:06:00 EDTMeena... Start Date: 07/16/21 Status: Ordered Flovent Diskus 50 mcg inhalation powder 1, puffs, Inhalation, 2 times a day, 0, 0, 08/12/08 23:12:13, Print JENNA Number, [id number], Constant Indicator Start Date: 08/12/08 Status: Ordered Triptodur 22.5 mg intramuscular injection, extended release = 22.5 mg, Intramuscular, Every 6 months, # 1 each, 1 Refills, Maintenance, 04/18/21 9:14:00 EDT, Powder, [facility], Partial fill upon patient request if the prescription is for a schedule II opioid drug., 178.5, cm, 04/17/21 11:06:0... Start Date: 04/18/21 Status: Ordered
--- OUTSIDE RECORDS SUMMARY | 2023-05-12 18:26 | XMS_ITS | Continuity of Care Document ---
Author Name Unknown Organization [facility] Address [address] [place] [address]- Care Team Providers Care Biostatistics Professor Name Role Phone Juan Anand MD Primary Care Physician [place] [facility] [place] 11[place]08/22 [facility] [address] [place] [id number]- Attending Physician: Not on Staff, Attending MD Allergies, Adverse Reactions, Alerts No Known Allergies [...] mL, 4 Refills, Maintenance, 10/09/22 16:44:00 EDT, [facility], Partial fill upon patient request if the prescription is for a schedule II opioid drug., 180, cm, 09/25/21 11:40:00 EDT,... Start Date: 10/09/22 Status: Ordered Flovent Diskus 50 mcg inhalation powder 1, puffs, Inhalation, 2 times a day, 0, 0, 08/12/08 23:12:13, Print JENNA Number, [id number], Constant Indicator Start Date: 08/12/08 Status: Ordered Triptodur 22.5 mg intramuscular injection, extended release = 22.5 mg, Intramuscular, Every 6 months, # 1 each, 1 Refills, Maintenance, 04/14/22 14:06:00 EDT, Powder, [facility], Partial fill upon patient request if the prescription is for a schedule II opioid drug., 180, cm, 09/25/21 11:40:00... Start Date: 04/14/22 Status: Ordered Patient Care team information Care Team Personnel Name: Juan Anand MD Position: [facility] General Pediatrics MD Member Role: PCP Address: Address: [address] [place] [address] [place] [address]- Care Team Related Persons Name: SALMA CASTELLANOS Address: home [address] [place] [address] Name: LAWRENCE GONSALES Address: home [address] [place] [address]
--- OUTSIDE RECORDS SUMMARY | 2023-05-12 18:26 | XMS_ITS | Continuity of Care Document ---
Author Name Unknown Organization [facility] Address [address] [place] [address]- Care Team Providers Care Medical Administrator Name Role Phone Juan Anand MD Primary Care Physician Encounter [facility] Date(s): 12/03/22 - 04/01/[address] [address]- Discharge Disposition: A-D/C Home Attending Physician: Joey Gleason MD Admitting Physician: Joey Gleason MD Referring Physician: Juan Anand MD Allergies, Adverse Reactions, Alerts No Known [...] Refills, Maintenance, 03/23/23 14:52:00 EDT, [id number], Partial fill upon patient request if the prescription is for a schedule II opioid drug., 180, cm, 09/25/21 11:40:00 EDT, Height,... Start Date: 03/23/23 Stop Date: 08/20/23 Status: Ordered Flovent Diskus 50 mcg inhalation powder 1, puffs, Inhalation, 2 times a day, 0, 0, 08/12/08 23:12:13, Print JENNA Number, [id number], Constant Indicator Start Date: 08/12/08 Status: Ordered Triptodur 22.5 mg intramuscular injection, extended release = 22.5 mg, Intramuscular, Every 6 months, # 1 each, 1 Refills, Maintenance, 04/14/22 14:06:00 EDT, Powder, [facility], Partial fill upon patient request if the prescription is for a schedule II opioid drug., 180, cm, 09/25/21 11:40:00... Start Date: 04/14/22 Status: Ordered Patient Care team information Care Team Personnel Name: Juan Anand MD Position: [facility] General Pediatrics MD Member Role: PCP Address: Address: [address] [place] [address] [place] [address]- Name: Joey Gleason MD Position: [facility] Physician - Endocrinology Med Service: Endocrinology Member Role: Admitting Physician Address: Address: [address] [place] [address]- Care Team Related Persons Name: SALMA CASTELLANOS Address: home [address] [place] [address] Name: LAWRENCE GONSALES Address: home [address] [place] [address]
--- OUTSIDE RECORDS SUMMARY | 2023-05-12 18:27 | XMS_ITS | Continuity of Care Document ---
Author Name Unknown Organization [facility] nd[facility] Address [address] [place] [address]- Care Team Providers Care Lugger Name Role Phone Juan Anand MD Primary Care Physician [phone] Encounter [facility] [place] Date(s): 09/30/21 - 10/30/21 [facility] [address] [place] [address]- [place] Allergies, Adverse Reactions, Alerts No Known [...] Refills, Maintenance, 07/16/21 12:30:00 EST, Tablet, [id number], Partial fill upon patient request if the prescription is for a schedule II opioid drug., 178.5, cm, 04/17/21 11:06:00 EDTHeig... Start Date: 07/16/21 Status: Ordered Flovent Diskus 50 mcg inhalation powder 1, puffs, Inhalation, 2 times a day, 0, 0, 08/12/08 23:12:13, Print JENNA Number, [id number], Constant Indicator Start Date: 08/12/08 Status: Ordered Triptodur 22.5 mg intramuscular injection, extended release = 22.5 mg, Intramuscular, Every 6 months, # 1 each, 1 Refills, Maintenance, 04/18/21 9:14:00 EDT, Powder, [facility], Partial fill upon patient request if the prescription is for a schedule II opioid drug., 178.5, cm, 04/17/21 11:06:0... Start Date: 04/18/21 Status: Ordered
[2023-05-12] MEDS: Throat Lozenge, Medicated LOZENGE 1 LOZENGE MUCOUS MEM (18:32)
== END 2023-05-12 18:44 | disposition home or self-care (01) ==
PROVIDERS: Physician Assistant; Emergency Provider Student in an Organized Health Care Education/Training Program
DX: J02.9 Acute pharyngitis, unspecified (principal); Z11.52 Encounter for screening for COVID-19
CPT/HCPCS: 87502; 87635; 87651; 99282; 99283

== ENCOUNTER 2023-06-10 19:47 | Emergency (ER) | payer OTHER, SELFPAY ==
[2023-06-10 20:05] VITALS: BP 122/70; PULSE 99; RESP 18; TEMP 36.2; O2SAT 97; BMI 23.0
--- NOTE | 2023-06-10 20:07 | ED.GENADULT ---
HPI - General Adult General Chief complaint: Skin/Abscess/Foreign Body Stated complaint: ? bump in rectum Related Data Allergies Allergy/AdvReac Type Severity Reaction Status Date / Time No Known Allergies Allergy Unverified 03/29/20 17:02 [No Known Allergies*] [facility] Social History Social History Advance Directives: No Advance Directives Information Provided: No Physical Exam ED Vital Signs: BMI result Body Mass Index 23.0 Course Course Course Narrative: This is an RME: Additional HPI, ROS, PE not included below will be deferred to primary provider. This is a [age]-male presenting to the ER with complaints of bump near rectum since yesterday. Unable to visualize in triage due to lack of privacy. No hx of similar symptoms. Plan: further ER evaluation Reevaluation(s) Reevaluation #1: Patient eloped prior to being fully evaluated. Discharge Plan Discharge Clinical Impression: Rectal lump Patient Disposition: Elopement Discharge Date/Time: 06/11/23 00:48
== END 2023-06-11 00:48 | disposition left against medical advice (07) ==
PROVIDERS: Emergency Provider Emergency Medicine
DX: R22.2 Localized swelling, mass and lump, trunk (principal)
CPT/HCPCS: 99281

== ENCOUNTER 2023-09-06 11:35 | Emergency (ER) | payer OTHER, SELFPAY ==
--- NOTE | 2023-09-06 11:37 | ECG_ITS ---
Test Reason : cp Blood Pressure : / mmHG Vent. Rate : 080 BPM Atrial Rate : 080 BPM P-R Int : 150 ms QRS Dur : 080 ms QT Int : 368 ms P-R-T Axes : 052 042 041 degrees QTc Int : 424 ms Normal sinus rhythm with sinus arrhythmia Normal ECG No previous ECGs available Referred By: Angela Velázquez Electronically Signed By:BRYAN LILLY
[2023-09-06 11:42] VITALS: BP 136/79; PULSE 82; RESP 16; TEMP 37; O2SAT 100; BMI 17.6
--- NOTE | 2023-09-06 11:42 | ED.GENADULT ---
HPI - General Adult General Chief complaint: Abdominal Pain Stated complaint: chest pain, vomiting Time Seen by Provider: 09/06/23 12:26 Source: patient Mode of arrival: ambulatory Limitations: no limitations History of Present Illness HPI narrative: 23-year-old male came in for evaluation of multiple symptoms that started 2-3 days ago. Patient been complaining of chest pain, nausea, vomiting, loose black stool, no fever, no chills, declined using any NSAIDs, no sick contacts, no history of exposure to a bad food. Patient has been taking Pepto-Bismol for the diarrhea. Patient also stated that he has been taking ibuprofen 600 mg for dental pain. Related Data Previous Rx's Medication Instructions Recorded omeprazole 40 mg capsule,delayed 40 mg PO DAILY #14 caps 09/06/23 release Allergies Allergy/AdvReac Type Severity Reaction Status Date / Time No Known Allergies Allergy Unverified 03/29/20 17:02 [No Known Allergies*] Review of Systems Review of Systems: All other systems are reviewed and are negative Constitutional: Reports as per HPI and Reports no additional constitutional complaints Eyes: Reports as per HPI and Reports no additional eye complaints Reports system reviewed and no additional complaints, except as documented Cardiovascular: Reports as per HPI and Reports no additional cardiovascular complaints Respiratory: Reports as per HPI and Reports no additional respiratory complaints Gastrointestinal: Reports as per HPI and Reports no additional gastrointestinal complaints Genitourinary: Reports no additional female genitourinary complaints Musculoskeletal: Reports no additional musculoskeletal complaints Skin/Breast: Reports system reviewed and no additional complaints, except as docu Psychiatric: Reports no additional psychiatric complaints Endocrine: Reports no additional endocrine complaints Hematologic/Lymphatic: Reports no additional hematologic/lymphatic complaints Allergic/Immunologic: Reports no additional allergic/immunologic complaints Reports system reviewed and no additional complaints, except as documented and Reports Abnormal speech present [facility] Social History Social History Advance Directives: No Physical Exam ED Vital Signs: Vital Signs - 24 hr 09/06/23 11:42 09/06/23 12:53 09/06/23 14:00 Temperature 98.6 F 98.4 F 99.2 F Pulse Rate 82 74 72 Respiratory Rate 16 20 18 Blood Pressure 136/79 109/76 105/68 Pulse Oximetry 100 100 100 Oxygen Delivery Method Room Air Room Air Room Air BMI result Body Mass Index 17.6 Vital signs have been reviewed and appear to be correct. Blood pressure elevated. Heart rate normal. Respiratory rate normal. Temperature normal. Oxygen saturation normal. Appearance: Alert. Oriented X3. No acute distress. Head: Normal external exam. Normocephalic. Atraumatic. No Estrada signs noted. No raccoon eyes noted Eyes: PERRLA. EOMI. Conjunctiva and sclera normal. Eyelids normal. ENT: TM's Normal. Pharynx normal. Uvula midline. Moist mucous membranes. No trismus noted. No drooling noted. No muffled voice noted. Neck: Normal inspection. Neck supple. FROM. No adenopathy. Thyroid Normal. No meningeal signs. No neck mass noted. CVS: Normal heart rate and rhythm. Heart sound normal. No murmurs noted. Pulses normal throughout. Respiratory: No respiratory distress. Painless inspiration. Breath sounds normal. No wheezes/rales/rhonchi noted. Chest nontender. No accessory muscle usage noted or decreased air movement noted. Abdomen: Soft and nontender, mild epigastric tenderness but no guarding, no rebound tenderness. Bowel sounds normal in all 4 quadrants. No distention noted. No organomegaly noted. No visible injury noted. Rectal exam: Black stool guaiac negative for blood. Back: No CVA tenderness. Full range of motion noted. Skin: Skin warm and dry. Normal skin color. Normal skin turgor. No rashes/lesions/lacerations noted. Extremities: No lower extremity edema. Extremities exhibit normal range of motion. Extremities nontender. Neuro: Oriented X 3. Cranial nerve exam: II-XII are grossly intact No motor deficit. No sensory deficit. Reflexes normal. Course Course Course Narrative: This is an RME: Additional HPI, ROS, PE not included below will be deferred to primary provider. Patient presents emergency department for evaluation of multiple complaints including chest pain, abdominal pain, nausea, vomiting, black stool, inability to tolerate oral intake. Plan: Labs, urinalysis, viral testing, EKG Reevaluation(s) Reevaluation #1: 23-year-old male came in for evaluation of multiple symptoms for 3-4 days. 1. Chest pain with heart score of 0. 2. Black stool was guaiac negative likely from taking Pepto-Bismol, patient also was instructed to stop taking ibuprofen for dental pain and switch it with Tylenol. 3. Follow-up with GI as an outpatient. Time: 14:52 Medical Decision Making Differential Diagnosis Differential Diagnoses: The differential diagnosis associated with the presentation includes (Gastroenteritis, upper GI bleed, lower GI bleed, severe anemia, electrolyte derangement, ACS.) Admission/Observation Consideration of admission/observation: Escalation of care including admission/observation considered Lab Data MDM Lab Attestation statement: I reviewed the patient's lab results. 09/06/23 12:05 09/06/23 12:05 Labs: Lab Results 09/06/23 09/06/23 Range/Units 12:05 12:57 WBC 8.3 (4.8-10.8) X10*3/uL RBC 4.66 (4.60-5.80) X10*6/uL Hgb 12.7 L (14.0-18.0) g/dl Hct 38.7 L (42.0-52.0) % MCV 83.0 (80.0-98.0) fL MCH 27.3 (27.0-33.0) pg MCHC 32.8 (31.0-36.0) g/dl RDW 13.2 (11.0-16.0) % Plt Count 196 (160-400) X10*3/uL MPV 10.9 (9.4-12.4) fL Immature Gran % (Auto) 0.1 (0.0-0.4) % Neut % (Auto) 68.7 (45-73) % Lymph % (Auto) 16.2 L (20-40) % [place] % (Auto) 11.4 H (2-11) % Eos % (Auto) 3.4 (0-4) % Baso % (Auto) 0.2 (0-2) % Lymph # (Auto) 1.3 (1.2-4.9) X10*3/uL [place] # (Auto) 0.9 (0.1-1.2) X10*3/uL Eos # (Auto) 0.3 (0.0-0.4) X10*3/uL Baso # (Auto) 0.0 (0.0-0.2) X10*3/uL Abs Immat Gran (auto) 0.01 (0.00-0.03) X10*3/uL Absolute Neuts (auto) 5.7 (2.0-8.3) x10*3/uL Absolute Nucleated RBC 0.000 (0.0-0.012) X10*3/uL Nucleated RBC % (auto) 0.0 (0.0-0.2) /100WBC Sodium 138 (135-145) mmol/L Potassium 3.3 (3.3-5.1) mmol/L Chloride 107 (96-108) mmol/L Carbon Dioxide 23 (22-29) mmol/L Anion Gap 11 L (12-20) BUN 11 (9-16) mg/dL Creatinine 0.78 (0.5-1.4) mg/dL Estim Creat Clear Calc 121.1 Estimated GFR > 60 Random Glucose 90 (60-115) mg/dL Calcium 8.8 (8.4-10.2) mg/dL Magnesium 1.7 (1.6-2.6) mg/dL Total Bilirubin 0.7 (0.0-1.0) mg/dL AST 18 (5-37) U/L ALT 16 (0-40) U/L Alkaline Phosphatase 65 (39-117) U/L Troponin I High Sens < 2.7 (<3.5-35.0) ng/L Total Protein 7.3 (6.5-8.0) g/dL Albumin 4.2 (3.5-5.0) g/dL Lipase 8 (8-78) U/L Urine Color Dark Yellow Urine Appearance Clear Urine pH 6.0 (5.0-9.0) Ur Specific Brooks >= 1.030 H (1.005-1.025) Urine Protein Trace (Neg-Trace) mg/dL Urine Glucose (UA) Negative (Negative) mg/dL Urine Ketones Trace (Negative) mg/dL Urine Blood Negative (Negative) Urine Nitrite Negative (Negative) Ur Leukocyte Esterase Negative (Negative) Stool Occult Blood NEGATIVE (NEGATIVE) Independent Interpretation I performed an independent interpretation of an: EKG (Normal sinus rhythm at 80 beats per minutes, normal axis deviation, normal intervals, no ST-T changes.) Discharge Plan Discharge Clinical Impression: Abdominal pain Patient Disposition: Home, Self-Care Instructions: Gastritis (ED) Prescriptions: New omeprazole 40 mg capsule,delayed release(DR/EC) 40 mg PO DAILY Qty: 14 0RF Referrals: Arnoldo Howard MD [Physician] -
[2023-09-06 12:13] LABS: MANUAL DIFF FLAG NO
[2023-09-06 12:14] LABS: Basophils Percent Auto 0.2 % (0-2); Eosinophils Absolute Auto 0.3 X10*3/uL (0.0-0.4); Eosinophils Percent Auto 3.4 % (0-4); Hematocrit 38.7 % (42.0-52.0); Hemoglobin 12.7 g/dl (14.0-18.0); Imm Gran Abs Auto 0.01 X10*3/uL (0.00-0.03); Imm Gran Pct Auto 0.1 % (0.0-0.4); Lymphocytes Absolute Auto 1.3 X10*3/uL (1.2-4.9); Lymphocytes Percent Auto 16.2 % (20-40); Mean Corpuscular HGB Conc 32.8 g/dl (31.0-36.0); Mean Corpuscular Hemoglobin 27.3 pg (27.0-33.0); Mean Platelet Volume 10.9 fL (9.4-12.4); Monocytes Absolute Auto 0.9 X10*3/uL (0.1-1.2); Monocytes Percent Auto 11.4 % (2-11); Neutrophils Absolute Auto 5.7 x10*3/uL (2.0-8.3); Neutrophils Percent Auto 68.7 % (45-73); Platelet Count 196 X10*3/uL (160-400); Red Blood Count 4.66 X10*6/uL (4.60-5.80); Red Cell Distribution Width 13.2 % (11.0-16.0); White Blood Count 8.3 X10*3/uL (4.8-10.8)
[2023-09-06 12:27] LABS: Alanine Aminotransferase 16 U/L (0-40); Albumin Level 4.2 g/dL (3.5-5.0); Alkaline Phosphatase 65 U/L (39-117); Anion Gap 11 (12-20); Aspartate Amino Transferase 18 U/L (5-37); Bilirubin Total 0.7 mg/dL (0.0-1.0); Blood Urea Nitrogen 11 mg/dL (9-16); Calcium 8.8 mg/dL (8.4-10.2); Carbon Dioxide 23 mmol/L (22-29); Chloride 107 mmol/L (96-108); Creatinine Clr Calc Pharmacy 121.1; Estimated Glomerular Filt Rate > 60; Glucose Random 90 mg/dL (60-115); Lipase 8 U/L (8-78); Magnesium 1.7 mg/dL (1.6-2.6); Potassium 3.3 mmol/L (3.3-5.1); Sodium 138 mmol/L (135-145); Total Protein 7.3 g/dL (6.5-8.0)
[2023-09-06 12:38] LABS: Troponin-I High Sensitivity < 2.7 ng/L (<3.5-35.0)
[2023-09-06 12:53] VITALS: BP 109/76; PULSE 74; RESP 20; TEMP 36.9; O2SAT 100
[2023-09-06 13:08] LABS: Appearance Urine Clear; Color Urine Dark Yellow; Glucose Urine UA Negative (Negative); Leukocyte Esterase Urine Negative (Negative); Nitrite Urine Negative (Negative); OBS1 NEGATIVE (NEGATIVE); Specific Gravity - Urine >= 1.030 (1.005-1.025); Urine Blood Negative (Negative); Urine Ketones Trace mg/dL (Negative); Urine Protein Trace mg/dL (Neg-Trace)
[2023-09-06 13:09] LABS: OBS Int Ctl Valid YES
[2023-09-06 14:00] VITALS: BP 105/68; PULSE 72; RESP 18; TEMP 37.3; O2SAT 100
[2023-09-06 15:00] VITALS: TEMP 36.6
== END 2023-09-06 15:05 | disposition home or self-care (01) ==
PROVIDERS: Nurse Practitioner Family; Emergency Provider Emergency Medicine
DX: R07.89 Other chest pain (principal); R11.2 Nausea with vomiting, unspecified; R10.9 Unspecified abdominal pain; Z79.899 Other long term (current) drug therapy
CPT/HCPCS: 36415; 80053; 81003; 82272; 83690; 83735; 84484; 85025; 93005; 99283; 99285

== ENCOUNTER → 2023-09-06 11:37 | Outpatient (BNV) | payer OTHER, SELFPAY | PROVIDERS: Emergency Provider Emergency Medicine; Visit Provider Internal Medicine | DX: R07.9 Chest pain, unspecified (principal) | CPT/HCPCS: 93010 ==

== ENCOUNTER 2023-10-11 18:56 | Emergency (ER) | payer OTHER, SELFPAY ==
[2023-10-11 19:44] VITALS: BP 126/76; PULSE 82; RESP 16; TEMP 37.2; O2SAT 100; BMI 18.4
[2023-10-11 20:06] LABS: MANUAL DIFF FLAG NO
[2023-10-11 20:16] LABS: IDNOW Serial# 08D9AD1C; Strep A Nucleic Acid Negative (Negative)
[2023-10-11 20:21] LABS: Alanine Aminotransferase 10 U/L (0-40); Albumin Level 4.1 g/dL (3.5-5.0); Alkaline Phosphatase 61 U/L (39-117); Anion Gap 10 (12-20); Aspartate Amino Transferase 13 U/L (5-37); Bilirubin Total 0.6 mg/dL (0.0-1.0); Blood Urea Nitrogen 9 mg/dL (9-16); Calcium 9.4 mg/dL (8.4-10.2); Carbon Dioxide 24 mmol/L (22-29); Chloride 109 mmol/L (96-108); Creatinine Clr Calc Pharmacy 141.6; Estimated Glomerular Filt Rate > 60; Glucose Random 88 mg/dL (60-115); Potassium 4.3 mmol/L (3.3-5.1); Sodium 139 mmol/L (135-145); Total Protein 7.2 g/dL (6.5-8.0)
[2023-10-11 20:38] LABS: Basophils Percent Auto 0.3 % (0-2); Eosinophils Absolute Auto 0.3 X10*3/uL (0.0-0.4); Eosinophils Percent Auto 3.4 % (0-4); Hematocrit 37.1 % (42.0-52.0); Hemoglobin 12.3 g/dl (14.0-18.0); Imm Gran Abs Auto 0.02 X10*3/uL (0.00-0.03); Imm Gran Pct Auto 0.2 % (0.0-0.4); Lymphocytes Absolute Auto 1.5 X10*3/uL (1.2-4.9); Lymphocytes Percent Auto 15.9 % (20-40); Mean Corpuscular HGB Conc 33.2 g/dl (31.0-36.0); Mean Corpuscular Hemoglobin 27.9 pg (27.0-33.0); Mean Corpuscular Volume 84.1 fL (80.0-98.0); Mean Platelet Volume 11.5 fL (9.4-12.4); Monocytes Absolute Auto 0.6 X10*3/uL (0.1-1.2); Monocytes Percent Auto 6.3 % (2-11); Neutrophils Absolute Auto 7.1 x10*3/uL (2.0-8.3); Neutrophils Percent Auto 73.9 % (45-73); Platelet Count 238 X10*3/uL (160-400); Red Blood Count 4.41 X10*6/uL (4.60-5.80); Red Cell Distribution Width 13.2 % (11.0-16.0); White Blood Count 9.7 X10*3/uL (4.8-10.8)
[2023-10-11 20:43] LABS: Influenza A PCR NEGATIVE (Negative); Influenza B PCR NEGATIVE (Negative); Resp Syncy Virus RNA Qual PCR NEGATIVE (Negative); SARS COV2 PCR INHOUSE NEGATIVE (Negative)
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
[2023-10-11] MEDS: Doxycycline Monohydrate 100 MG CAPSULE PO (22:03)
[2023-10-11] MEDS: cefTRIAXone sodium 500 MG, Lidocaine HCl 1 % MPF 1 ML IM (22:04)
[2023-10-11 22:11] VITALS: BP 107/59; PULSE 86; RESP 18; TEMP 37.1; O2SAT 100
[2023-10-12 03:25] LABS: CT PCR NOT DETECTED (Not Detect.); NG PCR NOT DETECTED (Not Detect.)
== END 2023-10-11 22:12 | disposition home or self-care (01) ==
PROVIDERS: Nurse Practitioner Family; Emergency Provider Emergency Medicine
DX: J02.9 Acute pharyngitis, unspecified (principal); K62.5 Hemorrhage of anus and rectum; K62.89 Other specified diseases of anus and rectum; Z20.2 Contact with and (suspected) exposure to infections with a predominantly sexual mode of transmission; Z72.52 High risk homosexual behavior
CPT/HCPCS: 0241U; 0353U; 80053; 85025; 87651; 96372; 99282; 99284; J0696

== ENCOUNTER 2023-10-15 13:07 | Outpatient (AMB) | payer OTHER, SELFPAY ==
[2023-10-15 13:23] VITALS: BP 120/78; PULSE 97; TEMP 36.6; O2SAT 98; BMI 18.8
--- NOTE | 2023-10-15 13:23 | MHC.OFFWIV ---
Intake Vital Signs 10/15/23 13:23 Height 5 ft 11 in Weight 135 lb BMI 18.8 BP 120/78 Blood Pressure Location Lt brachial Position Sitting Pulse 97 Pulse Source Pulse Oximeter Temp 97.8 F Temp Source Temporal Artery Scan Pulse Oximetry (%) 98 Oxygen Delivery Method Room Air Intake Visit Reasons: EP sore throat headache (lobby) Intake Note: pt is here today for sore throat headache started 1 week ago Patient Tobacco Use Status: Never used Tobacco Allergies No Known Allergies [No Known Allergies*] Allergy (Verified 10/15/23 13:26) Do you need a note to return to daycare/school/sports/work: No HPI HPI Comments History of Present Illness Details 23 y/o male patient who presents to walk in clinic with c/o Sore-throat and headaches. Pt was seen at [facility] for similar symptoms and was given Doxy for 10 days. [facility] Medical History No pertinent past medical history Social History Patient Tobacco Use Status: Never used Tobacco Substance Use Type: Marijuana Review of Systems Const All systems reviewed & are unremarkable except as noted in HPI and below Physical Exam Vital Signs: Last Vital Signs Temp 97.8 F 10/15/23 13:23 Pulse 97 10/15/23 13:23 BP 120/78 10/15/23 13:23 Pulse Ox 98 10/15/23 13:23 Oxygen Delivery Method Room Air 10/15/23 13:23 BMI result Body Mass Index 18.8 Const General: comfortable and no acute distress Orientation/consciousness: patient oriented x3 HEENT Ears: external ears normal and TM abnormal with fluid behind the TM bilateral; not bulging, not erythematous, not perforated and not retracted General nose exam: Normal nasal mucous membranes and turbinates present Face and sinus: Yes sinuses nontender Mouth: moist mucous membranes Throat: Yes uvula midline, Yes abnormal tonsil (Grade 3 + swelling) and Yes postnasal drainage Resp Effort & Inspection: normal respiratory effort and able to speak in complete sentences Auscultation: clear to auscultation bilaterally, no crackles, no rales, no rhonchi and no wheezes Cardio Rate: regular rate Rhythm: regular rhythm Neuro General: patient oriented x3 Psych Speech and movement: Normal speech and movement present Affect: Anxious affect present Assessment & Plan Assessment & Plan (1) Acute pharyngitis: Code(s): J02.9 - Acute pharyngitis, unspecified Qualifiers: Pharyngitis/tonsillitis etiology: unspecified etiology Qualified Code(s): J02.9 - Acute pharyngitis, unspecified Plan: - Added Prednisone - Continue on Doxy as directed - Acetaminophen for pain relief Medications: New prednisone 50 mg PO DAILY 5 days 5 tabs 0RF J02.9 - Acute pharyngitis, unspecified Discontinued docusate sodium (Colace) Discontinued Reason: Patient no longer taking 100 mg PO BID PRN 30 caps 0RF constipation omeprazole Discontinued Reason: Stopped on Transfer 40 mg PO DAILY 14 caps 0RF hydrocortisone-pramoxine 1-1 % (Proctofoam HC) Discontinued Reason: Patient no longer taking 1 appl TN BEDTIME PRN 10 grams 0RF hemorrhoids Coding Level of Care Code Est Pt Level 3 (05336) Diagnoses Acute pharyngitis, unspecified etiology J02.9 Pharyngitis/tonsillitis etiology: unspecified etiology Time Spent (min) 15
== END 2023-10-15 13:56 | disposition home or self-care (01) ==
PROVIDERS: Visit Provider Nurse Practitioner Family
DX: J02.9 Acute pharyngitis, unspecified (principal)
CPT/HCPCS: 87880; 99213

== ENCOUNTER 2023-10-20 14:02 | Outpatient (AMB) | payer OTHER, SELFPAY ==
[2023-10-20 14:06] VITALS: BP 122/76; PULSE 78; TEMP 36.6; O2SAT 98; BMI 18.1
--- NOTE | 2023-10-20 14:06 | MHC.OFFWIV ---
Intake Vital Signs 10/20/23 14:06 Height 5 ft 11 in Weight 130 lb BMI 18.1 BP 122/76 Blood Pressure Location Lt brachial Position Sitting Pulse 78 Pulse Source Pulse Oximeter Temp 97.9 F Temp Source Oral Pulse Oximetry (%) 98 Intake Visit Reasons: EP UTI/possible rash/irritation Intake Note: pt is here for c.o little red dots on genital areas, possible uti, states it is very itchy Patient Tobacco Use Status: Never used Tobacco Allergies No Known Allergies [No Known Allergies*] Allergy (Verified 10/15/23 13:26) Medication List - Last Reconciled 10/20/23 by Elias Gomez MD estradiol valerate mg IM needle (disp) 18 G (BD Regular Bevel [place]) As directed needle (disp) 23 gauge (Hypodermic [place]) As directed syringe (disposable) (BD Luer-Dontae Syringe) As directed Do you need a note to return to daycare/school/sports/work: Yes HPI EP UTI/possible rash/irritation HPI Details 23-year-old male presents to the office for a sick visit. Patient is transitioning from male to female gender. He has sex with male. Last sexual activity 3 months ago. Patient has casual sex. Did not use protection. Reports symptoms of itching and whitish accumulation of material at the edge of his penis. [facility] Medical History No pertinent past medical history Social History Patient Tobacco Use Status: Never used Tobacco Substance Use Type: Marijuana Physical Exam Vital Signs: Last Vital Signs Temp 97.9 F 10/20/23 14:06 Pulse 78 10/20/23 14:06 BP 122/76 10/20/23 14:06 Pulse Ox 98 10/20/23 14:06 BMI result Body Mass Index 18.1 Other: Genitalia: Exam done with a female medical receptionist medical assistant in the room. Penis: Uncircumcised, smegma collection Results AMB Urinalysis, Automated UA Leukoctes 0 [place]/uL Last Edit by Ramu Lenz CMA on 10/20/23 14:34 UA Nitrite Negative Last Edit by Ramu Lenz CMA on 10/20/23 14:34 UA Urobilinogen 0.2 mg/dL Last Edit by Ramu Lenz CMA on 10/20/23 14:34 UA Protein 15 mg/dL Last Edit by Ramu Lenz CMA on 10/20/23 14:34 UA pH 6.0 Last Edit by Ramu Lenz CMA on 10/20/23 14:34 UA Blood 0 Tomas/uL Last Edit by Ramu Lenz CMA on 10/20/23 14:34 UA Specific [place] 1.030 Last Edit by Ramu Lenz CMA on 10/20/23 14:34 UA Ketone Negative Last Edit by Ramu Lenz CMA on 10/20/23 14:34 UA Bilirubin 2 mg/dL Last Edit by Ramu Lenz CMA on 10/20/23 14:34 UA Glucose 0 mg/dL Last Edit by Ramu Lenz CMA on 10/20/23 14:34 Results Reviewed Results Reviewed: Laboratory Last Values Urine pH (Auto) 6.0 10/20/23 14:33 Specific [place] (Auto) 1.030 10/20/23 14:33 Urine Protein (Auto) 15 mg/dL 10/20/23 14:33 Glucose (UA)(Auto) 0 mg/dL 10/20/23 14:33 Urine Ketones (Auto) Negative 10/20/23 14:33 Urine Blood (Auto) 0 Tomas/uL 10/20/23 14:33 Urine Nitrite (Auto) Negative 10/20/23 14:33 Urine Bilirubin (Auto) 2 mg/dL 10/20/23 14:33 Urine Urobilinogen (Auto) 0.2 mg/dL 10/20/23 14:33 Leukocyte Esterase (Auto) 0 [place]/uL 10/20/23 14:33 Assessment & Plan Assessment & Plan (1) Balanitis: Code(s): N48.1 - Balanitis Plan: Ketoconazole prescription given. Patient requested HIV testing. Order placed. Orders: Orders AMB Urinalysis Automated Today Z13.9 - Encounter for screening, unspecified HIV Ab/Ag Today Z11.3 - Encounter for screening for infections with a predominantly sexual mode of transmission Coding Level of Care Code Est Pt Level 3 (98280) Diagnoses Balanitis N48.1
== END 2023-10-20 15:49 | disposition home or self-care (01) ==
PROVIDERS: Visit Provider Internal Medicine
DX: Z13.9 Encounter for screening, unspecified (principal); N48.1 Balanitis
CPT/HCPCS: 81003; 99213

== ENCOUNTER 2024-05-27 22:15 | Emergency (ER) | payer OTHER, SELFPAY ==
--- NOTE | ~2024-05-27 | XR_ITS ---
EXAMINATION: XR CHEST 2 VIEWS CLINICAL INFORMATION: Chest pain. COMPARISON: Prior chest radiographs dated 01/27/2010. TECHNIQUE: Frontal and lateral views of the chest were obtained. FINDINGS: The heart, great vessels, pulmonary vasculature and mediastinum are normal. The lungs show no focal infiltrate, effusion or pneumothorax. There is no acute osseous abnormality. XR/XR chest 2V IMPRESSION: No active cardiopulmonary disease. Electronically signed by: Hai Pittman MD 05/27/2024 11:12 PM WILLIAM JCAKSON
--- NOTE | 2024-05-27 22:16 | ECG_ITS ---
Test Reason : CP Blood Pressure : / mmHG Vent. Rate : 073 BPM Atrial Rate : 073 BPM P-R Int : 174 ms QRS Dur : 086 ms QT Int : 374 ms P-R-T Axes : 057 040 052 degrees QTc Int : 412 ms Normal sinus rhythm Normal ECG When compared with ECG of 06-SEP-2023 11:43, No significant change was found Referred By: Generic ED Physician Electronically Signed By:Michael Ko
[2024-05-27 22:22] VITALS: BP 116/66; PULSE 81; RESP 20; TEMP 36.5; O2SAT 100; BMI 17.7
--- NOTE | 2024-05-27 22:24 | MHC.EDTECH ---
Pt EKG done under the 10 minute bc. EKG time is out of synce. SHowing 10 minutes behind the actual time. CC marketing teacher made aware
[2024-05-27 22:35] LABS: MANUAL DIFF FLAG NO
[2024-05-27 22:38] LABS: Basophils Percent Auto 0.6 % (0-2); Eosinophils Absolute Auto 0.2 X10*3/uL (0.0-0.4); Eosinophils Percent Auto 3.3 % (0-4); Hematocrit 33.7 % (42.0-52.0); Hemoglobin 11.4 g/dl (14.0-18.0); Imm Gran Abs Auto 0.01 X10*3/uL (0.00-0.03); Imm Gran Pct Auto 0.2 % (0.0-0.4); Lymphocytes Absolute Auto 2.1 X10*3/uL (1.2-4.9); Lymphocytes Percent Auto 31.8 % (20-40); Mean Corpuscular HGB Conc 33.8 g/dl (31.0-36.0); Mean Corpuscular Hemoglobin 28.4 pg (27.0-33.0); Monocytes Absolute Auto 0.4 X10*3/uL (0.1-1.2); Monocytes Percent Auto 6.5 % (2-11); Neutrophils Absolute Auto 3.8 x10*3/uL (2.0-8.3); Neutrophils Percent Auto 57.6 % (45-73); Platelet Count 243 X10*3/uL (160-400); Red Blood Count 4.01 X10*6/uL (4.60-5.80); Red Cell Distribution Width 12.7 % (11.0-16.0); White Blood Count 6.6 X10*3/uL (4.8-10.8)
[2024-05-27 22:51] LABS: Anion Gap 9 (12-20); Blood Urea Nitrogen 13 mg/dL (9-16); Calcium 9.1 mg/dL (8.4-10.2); Carbon Dioxide 24 mmol/L (22-29); Chloride 108 mmol/L (96-108); Creatinine Clr Calc Pharmacy 129.3; Estimated Glomerular Filt Rate > 60; Glucose Random 96 mg/dL (60-115); Potassium 3.6 mmol/L (3.3-5.1); Sodium 137 mmol/L (135-145)
[2024-05-27 23:06] LABS: Troponin-I High Sensitivity < 2.7 ng/L (<3.5-35.0)
[2024-05-27 23:11] VITALS: BP 112/59; PULSE 68; PULSE 69; RESP 16; TEMP 36.7; O2SAT 100
--- NOTE | 2024-05-28 00:08 | ED.CHESTPAIN ---
HPI - Chest Pain General Chief Complaint: Chest Pain Stated Complaint: Chest pain, shortness of breath Time Seen by Provider: 05/27/24 23:54 Source: patient Mode of arrival: ambulatory Limitations: no limitations History of Present Illness ED Provider: noa CORTEZ narrative: Patient's male to female comes here for chest pain for last 4 days nonspecific chest pain increases on palpation no substance abuse no radiation pain no shortness a breath Related Data Home Medications ?Medication ?Instructions ?Recorded ?Confirmed estradiol valerate 40 mg/mL mg IM 10/15/23 intramuscular oil needle (disp) 18 G 18 gauge x 1 #100 ea 10/15/23 (BD Regular Bevel [place]) needle (disp) 23 gauge 23 gauge x #100 ea 10/15/23 1 (Hypodermic [place]) syringe (disposable) 1 mL (BD #1,000 ea 10/15/23 Luer-Dontae Syringe) Previous Rx's ?Medication ?Instructions ?Recorded ketoconazole 2 % topical cream 1 appl topical DAILY #30 grams 10/20/23 Allergies Allergy/AdvReac Type Severity Reaction Status Date / Time No Known Allergies Allergy Verified 05/27/24 22:23 [No Known Allergies*] Review of Systems Review of Systems: Yes all other systems are reviewed and are negative PMFSH Past Medical History Medical History No pertinent past medical history Social History Social History Patient Tobacco Use Status: Never used Tobacco Smoked in Last 30 Days: No Substance Use Type: Marijuana Substance Use Frequency: Occasionally Advance Directives: No Advance Directives Information Provided: Yes Physical Exam Vital Signs: Vital Signs: Last Vital Signs Temp 98.1 F 05/27/24 23:11 Pulse 68 05/27/24 23:11 Resp 16 05/27/24 23:11 BP 112/59 L 05/27/24 23:11 Pulse Ox 100 05/27/24 23:11 O2 Del Method Room Air 05/27/24 23:11 BMI result Body Mass Index 17.7 Appearance: Alert. Oriented X3. No acute distress. ENT: Pharynx normal. Oral Mucosa moist Neck: Normal inspection. Neck supple. CVS: Normal heart rate and rhythm. Pulses normal. Mild chest wall tenderness Respiratory: No respiratory distress. Equal air entry bilateral, no wheezing/rales/rhonchi Skin: Skin warm and dry. Normal skin color. Normal skin turgor. Extremities: No lower extremity edema. Neuro: Oriented X 3. Medical Decision Making Medical Decision Making [facility] Narrative: Patient's heart score of 0 atypical chest pain likely musculoskeletal cardiac enzymes negative EKG normal discharge patient home advised take Tylenol/Motrin Lab Data [facility] Lab Attestation statement: I reviewed the patient's lab results. 05/27/24 22:29 05/27/24 22:29 Labs: Lab Results 05/27/24 Range/Units 22:29 WBC 6.6 (4.8-10.8) X10*3/uL RBC 4.01 L (4.60-5.80) X10*6/uL Hgb 11.4 L (14.0-18.0) g/dl Hct 33.7 L (42.0-52.0) % MCV 84.0 (80.0-98.0) fL MCH 28.4 (27.0-33.0) pg MCHC 33.8 (31.0-36.0) g/dl RDW 12.7 (11.0-16.0) % Plt Count 243 (160-400) X10*3/uL MPV 11.0 (9.4-12.4) fL Immature Gran % (Auto) 0.2 (0.0-0.4) % Neut % (Auto) 57.6 (45-73) % Lymph % (Auto) 31.8 (20-40) % Lipscomb % (Auto) 6.5 (2-11) % Eos % (Auto) 3.3 (0-4) % Baso % (Auto) 0.6 (0-2) % Lymph # (Auto) 2.1 (1.2-4.9) X10*3/uL Lipscomb # (Auto) 0.4 (0.1-1.2) X10*3/uL Eos # (Auto) 0.2 (0.0-0.4) X10*3/uL Baso # (Auto) 0.0 (0.0-0.2) X10*3/uL Abs Immat Gran (auto) 0.01 (0.00-0.03) X10*3/uL Absolute Neuts (auto) 3.8 (2.0-8.3) x10*3/uL Absolute Nucleated RBC 0.000 (0.0-0.012) X10*3/uL Nucleated RBC % (auto) 0.0 (0.0-0.2) /100WBC Sodium 137 (135-145) mmol/L Potassium 3.6 (3.3-5.1) mmol/L Chloride 108 (96-108) mmol/L Carbon Dioxide 24 (22-29) mmol/L Anion Gap 9 L (12-20) BUN 13 (9-16) mg/dL Creatinine 0.73 (0.5-1.4) mg/dL Estim Creat Clear Calc 129.3 Estimated GFR > 60 Random Glucose 96 (60-115) mg/dL Calcium 9.1 (8.4-10.2) mg/dL Troponin I High Sens < 2.7 (<3.5-35.0) ng/L Independent Interpretation I performed an independent interpretation of an: EKG Interpretation: Normal sinus rhythm heart rate 73 beats per minute normal intervals normal axis no acute STT wave changes no acute ischemia Discharge Plan Discharge Clinical Impression: Atypical chest pain Patient Disposition: Home, Self-Care Instructions: Noncardiac Chest Pain (ED) Additional Instructions: Your chest pain not from the heart Take Tylenol/Motrin for pain as needed Prescriptions: No Action ketoconazole 2 % cream 1 appl topical DAILY Qty: 30 1RF (DME) needle (disp) 23 gauge [Hypodermic [place]] 23 gauge x 1 needle See Rx Instructions .ROUTE .MEDSUPPLY Qty: 100 Rx Instructions: As directed estradiol valerate 40 mg/mL oil IM (DME) needle (disp) 18 G [BD Regular Bevel [place]] 18 gauge x 1 needle See Rx Instructions .ROUTE .MEDSUPPLY Qty: 100 Rx Instructions: As directed (DME) BD Luer-Dontae Syringe 1 mL syringe See Rx Instructions .ROUTE DAILY Qty: 1000 Rx Instructions: As directed Print Language: Latvian
[2024-05-28 01:17] VITALS: BP 101/54; PULSE 79; RESP 14; TEMP 36.7; O2SAT 99
== END 2024-05-28 01:17 | disposition home or self-care (01) ==
PROVIDERS: Emergency Provider Internal Medicine
DX: R07.9 Chest pain, unspecified (principal)
CPT/HCPCS: 36415; 71046; 80048; 84484; 85025; 93005; 99283; 99285

== ENCOUNTER → 2024-05-27 22:16 | Outpatient (BNV) | payer OTHER, SELFPAY | PROVIDERS: Emergency Provider Internal Medicine; Visit Provider Internal Medicine Cardiovascular Disease | DX: R07.9 Chest pain, unspecified (principal) | CPT/HCPCS: 93010 ==

== ENCOUNTER 2025-05-30 14:20 | Outpatient (REF) | payer OTHER, SELFPAY ==
[2025-05-31 06:54] LABS: Syphilis Screen Nonreactive (Nonreactive)
[2025-05-31 07:14] LABS: HBsAGNum1 0.48 S/CO (0.00-0.99); HIV Num 1 0.08 S/CO (0.00-0.99); Hepatitis B Surface Antigen Negative (Negative); ~HepC Num1 0.13 S/CO (0.00-0.79); ~Hepatitis C Antibody Nonreactive (Nonreactive)
[2025-05-31 12:09] LABS: CT PCR Urine NOT DETECTED (Not Detect.); NG PCR Urine NOT DETECTED (Not Detect.)
== END 2025-05-30 14:21 | disposition home or self-care (01) ==
LOC: HO.LAB 14:20
PROVIDERS: Visit Provider Physician Assistant
DX: K64.4 Residual hemorrhoidal skin tags (principal); Z11.59 Encounter for screening for other viral diseases; Z11.4 Encounter for screening for human immunodeficiency virus [HIV]; Z20.2 Contact with and (suspected) exposure to infections with a predominantly sexual mode of transmission
CPT/HCPCS: 36415; 86780; 86803; 87340; 87389; 87491; 87591; 99202

== ENCOUNTER 2025-05-30 14:20 | Outpatient (AMB) | payer OTHER, SELFPAY ==
--- NOTE | 2025-05-30 14:23 | AM.OFFWIN_ITS ---
Intake Vital Signs 05/30/25 14:24 Height 5 ft 11 in Weight 141 lb BMI 19.7 BP 108/70 Blood Pressure Location Rt brachial Position Sitting Pulse 97 Pulse Source Pulse Oximeter Temp 97.9 F Temp Source Oral Pulse Oximetry (%) 99 Oxygen Delivery Method Room Air Intake Visit Reasons: EP-private area front and back itchy, burning Intake Note: pt presents with itching and burning to all genital and anal area x3 days Patient Tobacco Use Status: Never used Tobacco Allergies No Known Allergies (No Known Allergies*) Allergy (Verified 05/30/25 14:24) Medication List - Last Reconciled 05/30/25 by Irma Jasmine PA-C leuprolide (pediatric 3 month) (Lupron [place]-Ped) 30 mg IM [id number] needle (disp) 18 G (BD Regular Bevel [place]) As directed needle (disp) 23 gauge (Hypodermic [place]) As directed syringe (disposable) (BD Luer-Dontae Syringe) As directed Do you need a note to return to daycare/school/sports/work: No HPI HPI Comments History of Present Illness Details History of Present Illness - The patient is a 25-year-old male pres enting with concerns of a rash on his anus and a concern for sexually transmitted infections. 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 - Reports anal discomfort and itching. S ymptoms include stinging and raw sensation during showering. - The patient has not had a primary care provider for over a year and is seeking screening for sexually transmitted infections due to a history of unprotected intercourse with male partners. - He tells me he had flu like symptoms l ast week, including weakness, nausea, dizziness, headaches, fevers and body aches and it has resolved. Review of Systems - Gastrointestinal: Reports anal discomf ort and itching, denies significant bleeding. - Dermatological: Reports previous red b umps on the penile skin, currently resolved. - General: Reports flu-like symptoms inc luding weakness, nausea, dizziness, and headaches starting a week ago. All systems reviewed and are unremarkable except as noted in HPI Physical Exam General: Cooperative, healthy appearing, comfortable, no acute distress and well developed Orientation: Patient oriented x3 Limitations: No limitations Head: Normal to inspection Ears: Hearing grossly normal bilaterally Nose: Normal External nose present Face and sinus: Normal facial exam Eyes: Appearance normal, both eyes and all related structures Neck: Normal visual inspection and Yes full ROM Respiratory: Normal respiratory effort and able to speak in complete sentences. : anal area with grade one hemorrhoid, no vesicles, rash or other lesions noted Skin: No rashes or lesions noted Neuro: Patient oriented x3 Extremities: Normal to inspection Patient declined scarfer operator for exam, Yane Lam MA, was present for asking [facility] Medical History No pertinent past medical history Social History Patient Tobacco Use Status: Never used Tobacco Substance Use Type: Marijuana Physical Exam Vital Signs: Last Vital Signs Temp 97.9 F 05/30/25 14:24 Pulse 97 05/30/25 14:24 BP 108/70 05/30/25 14:24 Pulse Ox 99 05/30/25 14:24 Oxygen Delivery Method Room Air 05/30/25 14:24 BMI result Body Mass Index 19.7 Assessment & Plan Assessment & Plan (1) Exposure to sexually transmitted disease (STD): Code(s): Z20.2 - Contact with and (suspected) exposure to infections with a predominantly sexual mode of transmission Plan: Plan Patient was informed and verbally consented to the use of an ambient scribe for clinic note documentation during this visit. Screening For Sexually Transmitted Infections - Ordered tests for CT/NG, hepatitis, syphilis, and HIV due to recent flu-like symptoms and history of unprotected intercourse. - Advised to establish care with a primary care provider for ongoing health maintenance and follow-up on test results. He has well sent ACO and needs to change to well since [facility]. I gave him very explicit instructions on how to accomplish this and gave him the name of a PCP I thought he would be happy with, Kacy Reno PA-C as he is more comfortable with a female provider. - Strongly recommended he use condoms for sexual intercourse to protect himself against unwanted sexually transmitted infections. (2) Hemorrhoidal skin tag: Code(s): K64.4 - Residual hemorrhoidal skin tags Plan: as above Orders: Orders Syphilis Screen Today Z20.2 - Contact with and (suspected) exposure to infections with a predominantly sexual mode of transmission HIV Ab/Ag Today Z20.2 - Contact with and (suspected) exposure to infections with a predominantly sexual mode of transmission Hepatitis B Surface Antigen Today Z11.3 - Encounter for screening for infections with a predominantly sexual mode of transmission, Z20.2 - Contact with and (suspected) exposure to infections with a predominantly sexual mode of transmission Hepatitis C Antibody Today Z20.2 - Contact with and (suspected) exposure to infections with a predominantly sexual mode of transmission Coding Level of Care Code New Pt Level 4 (10533) Diagnoses Exposure to sexually transmitted disease (STD) Z20.2 Hemorrhoidal skin tag K64.4
[2025-05-30 14:24] VITALS: BP 108/70; PULSE 97; TEMP 36.6; O2SAT 99; BMI 19.7
--- OUTSIDE RECORDS SUMMARY | 2025-05-31 10:53 | XMS_ITS | Encounter Summary ---
Author Organization [facility] Address [address] [place] [address] Phone Care Team Providers Care Comb Capper Name Role Phone Juan Anand MD Primary Care Provider [phone] Encounter Details Date Type Department Care Team (Late st Contact Info) Description 02/26/2017 Conversion Encounter [facility] [place] [address] [place] [address] Social History Tobacco Use Types Packs/Day Years Used Date Smoking Tobacco: Never Comments:Never smoker Sex and Gender Information Value Date Recorded Sex Assigned at Male 10/06/2019 10:45 AM EDT Legal Sex Male 5:22 PM EDT Gender Identity Female 11/15/2020 2:24 PM EDT Sexual Orientation Lesbian or [place] 10/06/2019 10 :45 AM EDT documented as of this encounter Plan of Treatment Not on file documented as of this encounter Visit Diagnoses Not on filedocumented in this encounter Care Teams Comb Capper Relationship Specialty Start Date End Date Juan Anand MD [address] [place] [address] PCP - General Pediatrics 09/13/19 05/12/23 documented as of this encounter
--- OUTSIDE RECORDS SUMMARY | 2025-05-31 10:55 | XMS_ITS | Encounter Summary ---
Author Organization [facility] Address [address] [place] [address] Phone Care Team Providers Care Picker Machine Operator Name Role Phone Juan Anand MD Primary Care Provider [phone] Encounter Details Date Type Department Care Team (Late st Contact Info) Description 01/07/2013 Documentation EM Family Medicine [address] [place], [place] [id number] Family Medicine, Physician [address] [place] [address] Social History Tobacco Use Types Packs/Day Years Used Date Smoking Tobacco: Never Assessed Sex and Gender Information Value Date Recorded [...] on filedocumented in this encounter Care Teams Picker Machine Operator Relationship Specialty Start Date End Date Juan Anand MD [address] [facility] [place] [address] PCP - General Pediatrics 09/13/19 05/12/23 documented as of this encounter
--- OUTSIDE RECORDS SUMMARY | 2025-05-31 10:55 | XMS_ITS | Encounter Summary ---
Author Organization [facility] Address [address] [place] [address] Phone Care Team Providers Care Human Services Care Specialist Name Role Phone Juan Anand MD Primary Care Provider [phone] Reason for Visit * Reason Comments Med Refill Encounter Details Date Type Department Care Team (Late st Contact Info) Description 01/06/2020 Refill [facility] [place] [address] [place] [address] Carlos Tse MD [address] [place] [address] Mild intermittent asthma, unspecified whether complicated Social History Tobacco Use Types Packs/Day Years Used Date Smoking Tobacco: Never Smokeless Tobacco: Never Comments:Never smoker Alcohol Use Standard Drinks/Week Comments No 0 (1 standard drink = 0.6 oz pur e alcohol) Hunger/Food Answer Date Recorded In the last 12 months, did y ou or your family ever eat less than you felt you should because there wasn't enough money for food? No 10/06/2019 Stable Housing Answer Date Recorded Are you worried that in the next 2 months you may not have stable housing? No 10/06/2019 Transportation Concerns Answer Date Rec orded In the last 12 months, have you or your family ever had to go without healthcare because you didn't have a way to get there? No 10/06/2019 Hazards in Home Answer Date Recorded Think about the place you li ve. Do you have problems with any of the following? Pests (mice or roaches), mold, no/not working smoke detectors, water leaks, no window guards. No 2019 Financing Utilities Answer Date Recorde d In the last 12 months, has t he electric, gas, oil, or water company threatened to shut off your services in your home? No 10/06/2019 Safety at Home Answer Date Recorded Are you or your family worried about feeling saf e in your home? No 10/06/2019 Outside Support Answer Date Recorded Do you feel that you need mo re support from other people or programs to help you care for yourself or your family? No 10/06/2019 Understanding Health Concerns Answer Da te Recorded Do you need help understandi ng your or your child's healthcare needs (diagnosis, medications, plan, etc.)? No 10/06/2019 Financing Health Concerns Answer Date R ecorded In the last 12 months, was t here a time when your child needed to see a doctor or get medications or supplies but could not because of cost? No 10/06/2019 Missing School or Work Answer Date Nima rded Did you or your child miss s chool or work because of a health problem that could have been avoided? No 10/06/2019 Sex and Gender Information Value Date Recorded Sex Assigned at Male 10/06/2019 10:45 AM EDT Legal Sex Male 5:22 PM EDT Gender Identity Female 11/15/2020 2:24 PM EDT Sexual Orientation Lesbian or [place] 10/06/2019 10 :45 AM EDT documented as of this encounter Miscellaneous Notes * Telephone Encounter - Sylvia Thomas MA - 01/06/2020 11:15 AM EDT [facility] already called on this . Will decline this one as to not have a duplicate. documented in this encounter Plan of Treatment Not on file documented as of this encounter Visit Diagnoses Diagnosis Mild intermittent asthma, unspecified whether complicated documented in this encounter Care Teams Human Services Care Specialist Relationship Specialty Start Date End Date Juan Anand MD [address] [place] [address] [place] [address] PCP - General Pediatrics 09/13/19 05/12/23 documented as of this encounter
--- OUTSIDE RECORDS SUMMARY | 2025-05-31 10:56 | XMS_ITS | Clinical Summary ---
Author Organization [facility] Address [address] [place] [address] Phone Care Team Providers Care Police Patrol Officer Name Role Phone Unavailable Primary Care Provider Unavailabl e Allergies No known active allergies Medications fluticasone (Flonase) 50 MCG/ACT nasal sprayIndications:S easonal allergic rhinitis, unspecified trigger One spray each nostril q am. 1 Units 5 0 Active loratadine (Claritin) 10 MG tabletIndications: Seasonal allergic rhinitis, unspecified trigger One tab hs for allergy symptoms. 30 tablet 5 0 Active albuterol HFA (ProAir HFA) 108 (90 Base) MCG/ACT inhalerIndications :Mild intermittent asthma, unspecified whether complicated Inhale 2 puffs every 4 (four) hours as needed for wheezing or shortness of breath. 1 Units 0 Active estradiol 1 MG tablet Take 1 mg by mouth daily in the morning. 2 Active ibuprofen 600 MG tablet Take 600 mg by mouth every 4 (four) hours as needed. for pain 2 Active Triptodur 22.5 MG Suspension Reconstituted ER 2 Active Active Problems Problem Noted Date Diagnosed Date COVID-19 vaccination declined 01/14/2022 Gender dysphoria 01/22/2021 Overview (04/21/2021): Seen at [facility] 05/02 - lab work done and plan to begin gender affirming hormone therapy Assessment & Plan (07/22/2022 2:59 PM EST): On hormone therapy, follow at [facility], things are going well. Anxiety disorder 11/19/2020 Assessment & Plan (07/22/2022 3:00 PM EST): Not really seeing anyone at present, using daily marijuana to admittedly self medicate. Does see therapist at trans clinic at [facility], but these issues are not being addressed. Psychosocial stressors 08/21/2020 Overview (01/22/2021): 01/30- Living with Mom, concerns about guardianship issues. Viridiana López suggested contacting dept of mental health - info given to Mom. I also encouraged to f/u re MH care, starting with [facility]le 09/02- has aged out foster system. Mood disorder 10/06/2019 Overview (10/06/2019): Recently seen at [facility] for mood/ ADHD - to start on Quetapine. Mild intermittent asthma, uncomplicated 12/19/19 17 Assessment & Plan (07/22/2022 3:01 PM EST): Intermittent use of inhaler. Discussed particulate smoke of marijuana as trigger Attention deficit hyperactiv ity disorder (ADHD), combined type 11/20/2014 Behavior problem in child 08/26/2012 Immunizations Immunization Administration Dates Next Due COVID-19 Pfizer, omero-sucros e, 12+ years 07/22/2022(Deferred: Patient Refused) DTaP 5 10/05/2006, 4,2002,10/27,2002 H1N1 05/31/2009 HPV Vaccine 9 Valent 04/29/2017,03/13/2016,09/24 Hep A, ped/adol 04/17/2016,09/25/2015 Hep B, ped/adol 2002,2002,2002 Hib (HbOC) 08/30/2003 Hib (PRP-T) 2002,2002,2002 IPV 10/05/2006, 3,2002,08/12 Influenza Split 04/08/2012,05/22/2011,05/22/2010 Influenza, injectable, quadrivalent 09/25/2015 Influenza, injectable, quadr ivalent, preservative free 07/22/2022,08/21/2020,10/06/2019,05/03,04/29/2017,03/13/2016,04/25/2014 Influenza, injectable, trivalent 03/15/2009,06/12,03/28/2008 MMR 06/26/2003 MMRV 10/05/2006 Meningococcal Conj (Menactra) MCV4P 05/03/2018,0 09/25/2015 Pneumococcal Conjugate 06/04/2004,2002,2002,08/12 Tdap 09/25/2015 Varicella 06/26/2003 Family History Medical History Relation Name Comments No Known Problems Brother 1 Darren No Known Problems Brother 2 Anderson No Known Problems Brother 3 Lulh No Known Problems Father [place] Autism Half-Brother 1 Jared Asthma Half-Brother 2 Lamont Anemia Mother Teena Hypertension Mother Teena Relation Name Status Comments Brother 1 Darren Alive Brother: Alive and well, Alive and well, Alive and well Brother 2 Anderson Alive Brother: Alive and well, Alive and well, Alive and well Brother 3 Josaiah Alive Brother: Alive and well, Alive and well, Alive and well Father [place] Alive Father: Unknown Half-Brother 1 Jared Alive Half-Brother 2 Lamont Alive Mother Teena Alive Mother: Alive a nd well Other Family history of ADD/ADHD, Family history of Asthma, Family history of Migraines Social History Tobacco Use Types Packs/Day Years Used Date Smoking Tobacco: Never Smokeless Tobacco: Never Comments:Never smoker Alcohol Use Standard Drinks/Week Comments Yes 0 (1 standard drink = 0.6 oz pur e alcohol) monthly Hunger/Food Answer Date Recorded In the last [...] or [place] 10/06/2019 10 :45 AM EDT Last Filed Vital Signs Vital Sign Reading Time Taken Comments Blood Pressure 110/68 07/22/2022 1:51 PM EST Pulse 80 07/22/2022 1:51 PM EST Temperature 36.9 C (98.4 F) 07/22/2022 1:51 PM EST Respiratory Rate - - Oxygen Saturation - - Inhaled Oxygen Concentration - - Weight 59.9 kg (132 lb) 07/22/2022 1:51 PM EST Height 181 cm (5' 11.25 ) 07/22/2022 1:51 PM EST Body Mass Index 18.28 07/22/2022 1:51 PM EST Plan of Treatment Health Maintenance Due Date Last Done Comments Men B Vaccine (1 of 2 - Standard) 2018 Influenza Vaccines (#1) 2025 07/22/19, 08/21/2020, 10/06/2019, Additional history exists COVID-19 Vaccine (1 - 2024-2 6 season) 2025 DTaP,Tdap,and Td Vaccines (6 - Td or Tdap) 09/24/2025 09/25/2015, 10/05/2006, 11/08/2003, Additional history exists Hepatitis B Vaccines Completed 2002, 2002, 2002 HIB Vaccines Completed 08/30/2003, 02/2003, 2002, Additional history exists Pneumococcal Vaccine Completed 06/04/2004, 2002, 2002, Additional history exists IPV Vaccines Completed 10/05/2006, 01/12, 2002, Additional history exists MMR Vaccines Completed 10/05/2006, 06/26/2003 Varicella Vaccines Completed 10/05/2006, 06/26/2003 Hepatitis A Vaccines Completed 04/17/2016, 09/25/19 16 HPV Vaccines Completed 04/29/2017, 07/2015, 09/25/2015 Meningococcal Vaccine Completed 05/03/2018, 016 Procedures * Due to [place] [employer] law, this organization might not be sharing sensitive test results. Procedure Name Priority Date/Time Associated Diagnosis Comments CHLAMYDIA AND GONORRHEA, AMPLIFIED Routine 07/17/2022 2:44 PM EST High risk sexual behavior, unspecified type from Last 3 Months or Most Recently Relevant to Health Maintenance Results * Due to [place] [employer] law, this organization might not be sharing sensitive test results. * Chlamydia and Gonorrhoea, Amplified (07/17/2022 2:44 PM EST) Chlamydia Trachomatis, DNA Probe NEGATIVE (NEG) [facility] Comment: No Chlamydia Trachomatis RNA detected in this patient's sample (REFERENCE RANGE/NORMAL VALUE: NOT DETECTED) Note: This test uses drill hand- mediated amplification method to detect rRNA from C. Trachomatis URINE GC AMP PROBE NEGATIVE (NEG) [facility] Comment: No Neisseria Gonorrhoeae RNA detected in this patient's sample (REFERENCE RANGE/NORMAL VALUE: NOT DETECTED) NOTE: This test uses drill hand-mediated amplification method to detect rRNA from N.Gonorrhoeae. A negative result does not preclude infection. In the case of a negative urine result, testing of an endocervical(female) or urethral (male) specimen is recommended if there is high clinical suspicion of infection. Due to very high sensitivity of Nucleic Acid Amplification Test, false positive results may occur. Therefore, specimen handling is extremely important. In patients in whom the disease is unlikely, additional sample for testing should be considered after an initial positive result. The performance characteristics of this test have not been evaluated in children. The Aptima Combo2 assay is not intended for the evaluation of suspected sexual abuse or for other medico-legal indications. The ordering provider should assess if the patient had consensual sex without risk of sexual abuse. Consult the [facility] if needed. Contact phone number . Therapeutic failure or success cannot be determined with the Aptima Combo2 assay since nucleic acid may persist following appropriate antimicrobial therapy. The Centers for Disease Control and Prevention (CDC) recommends confirmatory retesting using culture or a different nucleic acid amplification test when positive results occur, if indicated. Testing performed or reported by [facility], a Service of [facility], [address] [place], [place] [address], [place] [address] Jose Enrique Dallas MD, Rn Labor And Delivery [facility]# [id number] Urine (Urine) 07/17/2022 2:4 4 PM EST 07/17/2022 2:49 PM EST us Juan Anand MD LAB MICROBIOLOGY - GENERAL ORDER SHARMIN Final Result [facility] from Last 3 Months or Most Recently Relevant to Health Maintenance Insurance [facility] NON PCC NON PCC
--- OUTSIDE RECORDS SUMMARY | 2025-05-31 10:56 | XMS_ITS | Encounter Summary ---
Author Organization [facility] Address [address] [place] [address] Phone Care Team Providers Care Toy Assembler Name Role Phone Juan Anand MD Primary Care Provider [phone] Encounter Details Date Type Department Care Team (Late st Contact Info) Description 12/16/2016 Documentation EM Family Medicine [address] [place], [place] [id number] Family Medicine, Physician [address] [place] [address] Social History Tobacco Use Types Packs/Day Years [...] on filedocumented in this encounter Care Teams Toy Assembler Relationship Specialty Start Date End Date Juan Anand MD [address] [facility] [place] [address] PCP - General Pediatrics 09/13/19 05/12/23 documented as of this encounter
--- OUTSIDE RECORDS SUMMARY | 2025-05-31 10:57 | XMS_ITS | Encounter Summary ---
Author Organization [facility] Address [address] [place] [address] Phone Care Team Providers Care Relay Repairer Name Role Phone Juan Anand MD Primary Care Provider [phone] Encounter Details Date Type Department Care Team (Late st Contact Info) Description 12/26/2009 Documentation EM Family Medicine [address] [place], [place] [id number] Family Medicine, Physician [address] [place] [address] Social History Tobacco Use Types Packs/Day Years [...] on filedocumented in this encounter Care Teams Relay Repairer Relationship Specialty Start Date End Date Juan Anand MD [address] [facility] [place] [address] PCP - General Pediatrics 09/13/19 05/12/23 documented as of this encounter
--- OUTSIDE RECORDS SUMMARY | 2025-05-31 10:58 | XMS_ITS | Encounter Summary ---
Author Organization [facility] Address [address] [place] [address] Phone Care Team Providers Care Ordnance Handler Name Role Phone Juan Anand MD Primary Care Provider Encounter Details Date Type Department Care Team (Late st Contact Info) Description 10/13/2016 Documentation EM Family Medicine [address] [place], [place] [phone] Family Medicine, Physician [address] [place] [address] Social History Tobacco Use Types Packs/Day Years [...] on filedocumented in this encounter Care Teams Ordnance Handler Relationship Specialty Start Date End Date Juan Anand MD [address] [facility] [place] [address] PCP - General Pediatrics 09/13/19 05/12/23 documented as of this encounter
== END 2025-05-30 15:15 | disposition home or self-care (01) ==
PROVIDERS: Visit Provider Physician Assistant
DX: Z20.2 Contact with and (suspected) exposure to infections with a predominantly sexual mode of transmission (principal); K64.4 Residual hemorrhoidal skin tags